=== PATIENT | male | born 1960 | race Caucasian/White ===

== ENCOUNTER 2016-06-21 16:04 | Observation (INO) | payer OTHER ==
[~2016-06-21] VITALS: Ht 172.7 cm; Wt 86.0 kg
[~2016-06-21 16:04] MED LIST: ALPR1 PO; DEPA500T3 PO; INDO50 PO; PERC5TAB12 PO; PROZ20CA11 PO; SERO50TA4 PO; TRAZ100 PO; ZOLP10TA3 PO
[2016-06-21 16:07] VITALS: BP 120/69; PULSE 86; RESP 15; TEMP 97.4; O2SAT 100
[2016-06-21] MEDS ORDERED: SODIUM CHLORIDE 0.9% FLUSH 10 ML FLUSH IVF PRN (16:30)
--- NOTE | 2016-06-21 16:33 | PD ---
HPI Chief Complaint: Syncope/Near-Syncope Time Seen by Provider: 16:33 Travel History International Travel<30 days: No Contact w/Intl Traveler<30days: No Traveled to known affect area: No History of Present Illness HPI 56-year-old male with history of seizure disorder, migraine headaches, CVA, presents to the emergency department for evaluation. Patient states that this morning he began feeling dizzy. He was with a friend. He became lightheaded and passed out. He struck his head on the ground. Patient states following that he has felt not quite himself throughout the day. He states that there were 2 more instance today where he fell again. He states he was aware but had felt like he had lost control of his body. He states that this scared him. He has never had anything like this happen before. He does sometimes fall from time to time but he states never like this. He denies any recent illnesses, fever, or chills. Denies any chest pain or tightness. Denies any episodes of diaphoresis. No nausea or vomiting. He is reporting a headache and back pain now since striking his head on the ground. He reports no acute focal deficit or weakness. He has no other symptoms to report at this time. PFSH Past Medical History Arthritis: Yes Anxiety: Yes Depression: Yes Cerebrovascular Accident: Yes Diabetes: No Musculoskeletal: Yes (DEGENERATIVE DISC DISEASE, BULGING DISC) Integumentary: Yes (PSORIASIS) Immunizations Current: Yes Past Surgical History Abdominal Surgery: Yes (HERNIA REPAIR RIGHT LOWER GROIN) Eye Surgery: Yes (left eyelid) Other Surgery: Yes (SINUS) Social History Alcohol Use: No (3 years ago) Tobacco Use: No Substance Use: No Allergies-Medications (Allergen,Severity, Reaction): Coded Allergies: Lomustine (Verified Allergy, Severe, Rash, 06/21/16) Penicillin (Verified Allergy, Severe, Rash, 06/21/16) Reported Meds & Prescriptions Reported Meds & Active Scripts Active Reported Ammonium Lactate (Lactic Acid) 12 % Cre 1 Applic TOP BID APPLY TO: Clobetasol Topical (Clobetasol Propionate) 0.05% Cream 1 Applic TOPICAL BID Pyridostigmine ER (Pyridostigmine [place]) 180 Mg Tab 60 Mg PO TID Trazodone HCl 100 Mg Tab 200 Mg PO HS Fluoxetine HCl (Fluoxetine HCl (Pmdd)) 20 Mg Tab 60 Mg PO DAILY Quetiapine Fumarate ER (Quetiapine Fumarate) 200 Mg Tab 150 Mg PO HS Hydroxyzine Pamoate 100 Mg Cap 100 Mg PO QID PRN Divalproex ER (Divalproex Sodium) 500 Mg Tab 1,000 Mg PO DAILY Zolpidem (Zolpidem Tartrate) 5 Mg Tab 5 Mg PO HS PRN Review of Systems Except as stated in HPI: all other systems reviewed are Neg Physical Exam Narrative GENERAL: Well-nourished male patient, sitting in bed in no acute distress SKIN: Focused skin assessment warm/dry. HEAD: Normocephalic. EYES: Slightly [place] left pupil. No scleral icterus. No injection or drainage. ENT: No nasal bleeding or discharge. Mucous membranes pink and moist. NECK: Trachea midline. No JVD. No cervical spine tenderness palpation. CARDIOVASCULAR: Regular rate and rhythm. No murmur appreciated. RESPIRATORY: No accessory muscle use. Clear to auscultation. Breath sounds equal bilaterally. GASTROINTESTINAL: Abdomen soft, non-tender, nondistended. Hepatic and splenic margins not palpable. MUSCULOSKELETAL: No obvious deformities. No clubbing. No cyanosis. No edema. NEUROLOGICAL: Awake and alert. No obvious cranial nerve deficits. Motor grossly within normal limits. Normal speech. PSYCHIATRIC: Appropriate mood and affect; insight and judgment normal. Data Data Last Documented VS Vital Signs Date Time Temp Pulse Resp B/P Pulse Ox O2 Delivery O2 Flow Rate FiO2 06/21/16 16:38 16 97 Room Air 06/21/16 16:07 97.4 86 120/69 Orders Electrocardiogram (06/21/16 16:24) Complete Blood Count With Diff (06/21/16 16:24) Comprehensive Metabolic Panel (06/21/16 16:24) B-Type Natriuretic Peptide (06/21/16 16:24) Ckmb (Isoenzyme) Profile (06/21/16 16:24) Troponin I (06/21/16 16:24) Act Partial Throm Time (Ptt) (06/21/16 16:24) Prothrombin Time / Inr (Pt) (06/21/16 16:24) Urinalysis - C+S If Indicated (06/21/16 16:24) Chest, Single Ap (06/21/16 16:24) Ct Brain W/O Iv Contrast(Rout) (4/29/17 16:24) Ct Cerv Spine W/O Contrast (06/21/16 16:24) Ecg Monitoring (06/21/16 16:24) Iv Access Insert/Monitor (06/21/16 16:24) Oximetry (06/21/16 16:24) Sodium Chloride 0.9% Flush (Ns Flush) (06/21/16 16:30) CKMB (06/21/16 16:58) CKMB% (06/21/16 16:58) Sodium Chlor 0.9% 1000 Ml Inj (Ns 1000 M (06/21/16 18:15) Orthostatic Blood Pressure (06/21/16 18:14) Valproic Acid (Depakene) (06/21/16 19:07) Labs Laboratory Tests Test 06/21/16 16:58 White Blood Count 9.6 TH/MM3 Red Blood Count 4.51 MIL/MM3 Hemoglobin 13.4 GM/DL Hematocrit 39.5 % Mean Corpuscular Volume 87.7 FL Mean Corpuscular Hemoglobin 29.7 PG Mean Corpuscular Hemoglobin 33.9 % Concent Red Cell Distribution Width 14.7 % Platelet Count 180 TH/MM3 Mean Platelet Volume 7.1 FL Neutrophils (%) (Auto) 74.3 % Lymphocytes (%) (Auto) 15.5 % Monocytes (%) (Auto) 9.4 % Eosinophils (%) (Auto) 0.4 % Basophils (%) (Auto) 0.4 % Neutrophils # (Auto) 7.1 TH/MM3 Lymphocytes # (Auto) 1.5 TH/MM3 Monocytes # (Auto) 0.9 TH/MM3 Eosinophils # (Auto) 0.0 TH/MM3 Basophils # (Auto) 0.0 TH/MM3 CBC Comment DIFF FINAL Differential Comment Prothrombin Time 10.7 SEC Prothromb Time International 1.0 RATIO Ratio Activated Partial 27.1 SEC Thromboplast Time Sodium Level 141 MEQ/L Potassium Level 3.9 MEQ/L Chloride Level 104 MEQ/L Carbon Dioxide Level 29.4 MEQ/L Anion Gap 8 MEQ/L Blood Urea Nitrogen 22 MG/DL Creatinine 0.92 MG/DL Estimat Glomerular Filtration 85 ML/MIN Rate Random Glucose 90 MG/DL Calcium Level 8.8 MG/DL Total Bilirubin 0.5 MG/DL Aspartate Amino Transf 20 U/L (AST/SGOT) Alanine Aminotransferase 31 U/L (ALT/SGPT) Alkaline Phosphatase 49 U/L Total Creatine Kinase 230 U/L Creatine Kinase MB 2.8 NG/ML Troponin I LESS THAN 0.02 NG/ML B-Type Natriuretic Peptide 63 PG/ML Total Protein 7.2 GM/DL Albumin 3.8 GM/DL MDM Medical Decision Making Medical Screen Exam Complete: Yes Emergency Medical Condition: Yes Medical Record Reviewed: Yes Differential Diagnosis Syncope versus near-syncope versus electrolyte abnormality versus dehydration versus cardiac etiology versus neurologic etiology versus seizure versus Depakote toxicity Narrative Course 56-year-old male presents to emergency department for evaluation following 3 syncopal episodes today. Patient appears without distress. His vital signs are stable. Neuro exam is nonfocal. CBC and CMP are without acute concern. Troponin is less than 0.02. BNP is 63. CT of the cervical spine is a slight neural foramina compromise at the right C3-C4, left C5-C6, left C6-C7, and lateral recess compromise at C6 7. CT imaging of the brain is without acute intracranial normality. Chest x-ray shows slight left lung base atelectasis. I discussed the patient my attending physician Dr. Sevilla who agrees the patient should be admitted observation for syncope workup. This is discussed with the patient. He is in agreement with this clinic care. Diagnosis Primary Impression: Syncope Qualified Code: R55 - Syncope, unspecified syncope type Additional Impression: Mild closed head injury Qualified Code: S09.90XA - Mild closed head injury, initial encounter Admitting Information Admitting Physician Requests: Observation Condition: Stable Christy Pope Jun 21, 2016 16:33
[2016-06-21 16:38] VITALS: RESP 16; O2SAT 97
[2016-06-21] MEDS ORDERED: HYDR100C PO (16:47)
[2016-06-21] MEDS ORDERED: FLUO1TAB17 PO (16:47)
[2016-06-21] MEDS ORDERED: AMMO12CR4 TOP (16:47)
[2016-06-21] MEDS ORDERED: DIVA500T3 PO (16:47)
[2016-06-21] MEDS ORDERED: TRAZ100T5 PO (16:47)
[2016-06-21] MEDS ORDERED: QUET-88 PO (16:47)
[2016-06-21] MEDS ORDERED: CLOB0.055 TOPICAL (16:47)
[2016-06-21] MEDS ORDERED: PYRI1TAB8 PO (16:47)
[2016-06-21] MEDS ORDERED: ZOLP5TAB3 PO (16:47)
[2016-06-21 17:11] LABS: AUTOMATED NEUTROPHIL # 7.1 TH/MM3 (1.8-7.7); BASOPHIL % 0.4 % (0.0-2.0); EOSINOPHIL % 0.4 % (0.0-4.0); HEMATOCRIT 39.5 % (39.0-51.0); HEMO FLAGS DIFF FINAL; LYMPH % 15.5 % (9.0-44.0); LYMPHOCYTE # 1.5 TH/MM3 (1.0-4.8); MEAN CELL VOLUME 87.7 FL (80.0-100.0); MEAN CORPUSCULAR HEMOGLOBIN 29.7 PG (27.0-34.0); MEAN CORPUSCULAR HGB CONC 33.9 % (32.0-36.0); MONO % 9.4 % (0.0-8.0); NEUT % 74.3 % (16.0-70.0); PLATELET COUNT 180 TH/MM3 (150-450); RED BLOOD COUNT 4.51 MIL/MM3 (4.50-5.90); RED CELL DISTRIBUTION WIDTH 14.7 % (11.6-17.2); WHITE BLOOD COUNT 9.6 TH/MM3 (4.0-11.0)
[2016-06-21 17:25] LABS: APTT (PATIENT) 27.1 SEC (24.3-30.1); PROTHROMBIN TIME - PATIENT 10.7 SEC (9.8-11.6)
--- NOTE | 2016-06-21 17:29 | RADRPT ---
EXAM DATE/TIME: 06/21/2016 16:32 [facility] COMPARISON: No previous studies available for comparison. INDICATIONS : Dizzy and lightheaded. MEDICAL HISTORY : None. SURGICAL HISTORY : None. ENCOUNTER: Initial ACUITY: 1 day PAIN SCORE: 0/10 LOCATION: Bilateral chest FINDINGS: The lungs are clear without infiltrate, nodule, or mass except for slight left lung base atelectasis. There is no appreciable pleural effusion for technique. Heart and mediastinum are unremarkable. CONCLUSION: Slight left lung base atelectasis. Madan Dove MD on June 21, 2016 at 17:27 Board Certified Radiologist. This report was verified electronically.
[2016-06-21 17:38] LABS: ANION GAP 8 MEQ/L (5-15); AST (GOT) 20 U/L (15-37); BICARBONATE 29.4 MEQ/L (21.0-32.0); BLOOD UREA NITROGEN 22 MG/DL (7-18); CHLORIDE 104 MEQ/L (98-107); GLOMERULAR FILTRATION RATE 85 ML/MIN (>89); POTASSIUM 3.9 MEQ/L (3.5-5.1); SODIUM (NA) 141 MEQ/L (136-145)
[2016-06-21 17:43] LABS: ALKALINE PHOSPHATASE 49 U/L (45-117); ALT (GPT) 31 U/L (12-78); CREATINE KINASE 230 U/L (39-308); TOTAL BILIRUBIN ADULT 0.5 MG/DL (0.2-1.0)
[2016-06-21 17:55] LABS: CKMB 2.8 NG/ML (0.5-3.6)
--- NOTE | 2016-06-21 18:05 | RADRPT ---
EXAM DATE/TIME: 06/21/2016 17:53 [facility] COMPARISON: No previous studies available for comparison. INDICATIONS : Fall, hit head on concrete. RADIATION DOSE: 41.00 CTDIvol (mGy) MEDICAL HISTORY : Cerebrovascular disease. SURGICAL HISTORY : None. ENCOUNTER: Initial ACUITY: 1 day PAIN SCALE: 0/10 LOCATION: cranial TECHNIQUE: Multiple contiguous axial images were obtained of the head. Using automated exposure control and adj ustment of the mA and/or kV according to patient size, radiation dose was kept as low as reasonably a chievable to obtain optimal diagnostic quality images. FINDINGS: There is no evidence for intracranial hemorrhage, mass effect, mass lesions, edema, or extra-axial fl uid collections. The visualized bony structures appear intact. The ventricles are normal size for t he patient's age. There are no signs of acute infarction for technique. CONCLUSION: Unremarkable study. Madan Dove MD on June 21, 2016 at 18:02 Board Certified Radiologist. This report was verified electronically.
--- NOTE | 2016-06-21 18:13 | RADRPT ---
EXAM DATE/TIME: 06/21/2016 17:53 [facility] COMPARISON: No previous studies available for comparison. INDICATIONS : Fall, hit head on concrete. RADIATION DOSE: 20.54 CTDIvol (mGy) MEDICAL HISTORY : Cerebrovascular disease. SURGICAL HISTORY : None. ENCOUNTER: Initial ACUITY: 1 day PAIN SCALE: 0/10 LOCATION: neck TECHNIQUE: Volumetric scanning of the cervical spine was performed. Multiplanar reconstructions in the sagittal, coronal and oblique axial planes were performed. Using automated exposure control and adjustment o f the mA and/or kV according to patient size, radiation dose was kept as low as reasonably achievable to obtain optimal diagnostic quality images. FINDINGS: No evidence of subluxation. No definite fracture is seen for technique. C2-C3: There is no evidence for any significant compromise to the thecal sac, or the exiting nerve roots. N o appreciable thecal sac stenosis is seen. The neural foramina and lateral recess appear patent bila terally. C3-C4: There is slight neural foramina compromise on the right due to asymmetrical bulging disc and hypertro phic changes. No significant thecal sac stenosis is seen. C4-C5: Slight degenerative changes are seen within the disc space and facets. There is no evidence for any s ignificant compromise to the thecal sac, or the exiting nerve roots. No appreciable thecal sac steno sis is seen. The neural foramina and lateral recess appear patent bilaterally. C5-C6: Moderate degenerative changes are seen within the disc space and facets. There is slight neural hailee jaime compromise on the left due to asymmetrical bulging disc and hypertrophic changes. Slight bulging disc and hypertrophic changes are seen with indentation on the thecal sac and no significant compromi se to the thecal sac . C6-C7: Moderate degenerative changes are seen within the disc space and facets. There is slight neural hailee jaime compromise on the left due to asymmetrical bulging disc and hypertrophic changes. Slight bulging disc and hypertrophic changes are seen with indentation on the thecal sac and no significant compromi se to the thecal sac. Slight lateral recess compromise is seen on the left due to hypertrophic change s and bulging disc. C7-T1: There is no evidence for any significant compromise to the thecal sac, or the exiting nerve roots. N o appreciable thecal sac stenosis is seen. The neural foramina and lateral recess appear patent bila terally. CONCLUSION: Slight neural foramina compromise right C3-C4, left C5-C6, left C6-C7 and lateral recess compromise l eft C6-7. K. Tip Dove MD on June 21, 2016 at 18:07 Board Certified Radiologist. This report was verified electronically.
[2016-06-21] MEDS ORDERED: SODIUM CHLOR 0.9% 1000 ML INJ 1,000 ML IV ONE (18:15)
[2016-06-21 19:12] VITALS: BP 135/78; PULSE 52; RESP 18; O2SAT 98
--- NOTE | 2016-06-21 19:42 | HHI.HP ---
[facility] Admission Diagnosis SYNCOPE Diagnoses: (1) Syncope Diagnosis: Principal (2) Seizure disorder Diagnosis: Principal (3) Dehydration Diagnosis: Principal (4) Migraine Diagnosis: Principal Travel History International Travel<30 Days: No Contact w/Intl Traveler <30 Da: No Traveled to Known Affected Are: No History of Present Illness This is a 56-year-old male with a PMH of Seizure Disorder, Migraine, Anxiety, Depression and Psoriasis who presented to the ER after syncopal event. Per patient he "didn't feel right all-day", was at [employer] with a friend and felt sudden onset of lightheadedness/dizziness and sat down on a bench, then had syncopal event w/ head trauma after striking head on ground. Reports 2 subsequent syncopal events as well. Denies seizure activity. On arrival, BP 120/69, HR 86, O2 sat 100% on RA, Afebrile. CBC unremarkable except for elevated neutrophil count. Chemistry essentially unremarkable GFR 85, previously 1 -09/04 16. Troponin negative. INR 1.0. CT Head unremarkable. CT C-spine slight neural foraminal compromise, no acute findings. CXR with slight left lung base atelectasis. Review of Systems Except as stated in HPI: all other systems reviewed are Neg ROS: 14 point review of systems otherwise negative. Past Family Social History Past Medical History PMH: Seizure Disorder, Migraine, Anxiety, Depression and Psoriasis Past Surgical History PAST SURGICAL HISTORY: Hernia Repair, Left Eyelid Surgery, Sinus Surgery Allergies: Coded Allergies: Lomustine (Verified Allergy, Severe, Rash, 06/21/16) Penicillin (Verified Allergy, Severe, Rash, 06/21/16) Family History PAST FAMILY HISTORY: Reviewed. No h/o DM or CAD Social History PAST SOCIAL HISTORY: Negative for alcohol, tobacco or drugs. Physical Exam Vital Signs Vital Signs Date Time Temp Pulse Resp B/P Pulse Ox O2 Delivery O2 Flow Rate FiO2 06/21/16 19:12 52 18 135/78 98 Room Air 06/21/16 16:38 16 97 Room Air 06/21/16 16:07 97.4 86 15 120/69 100 Physical Exam PE: GENERAL: Middle-aged male in no acute distress. HEENT: PERRLA, EOMI. No scleral icterus or conjunctival pallor. No lid lag or facial droop. CARDIOVASCULAR: Regular rate and rhythm. No obvious murmurs to auscultation. No chest tenderness to palpation. RESPIRATORY: No obvious rhonchi or wheezing. Clear to auscultation. Breath sounds equal bilaterally. GASTROINTESTINAL: Abdomen soft, non-tender, nondistended. BS normal. MUSCULOSKELETAL: Extremities without clubbing, cyanosis, or edema. No obvious deformities. NEUROLOGICAL: Awake, alert and oriented x4. No focal neurologic deficits. Moving both upper and lower extremities spontaneously. Laboratory Laboratory Tests Test 06/21/16 16:58 White Blood Count 9.6 Red Blood Count 4.51 Hemoglobin 13.4 Hematocrit 39.5 Mean Corpuscular Volume 87.7 Mean Corpuscular Hemoglobin 29.7 Mean Corpuscular Hemoglobin 33.9 Concent Red Cell Distribution Width 14.7 Platelet Count 180 Mean Platelet Volume 7.1 Neutrophils (%) (Auto) 74.3 Lymphocytes (%) (Auto) 15.5 Monocytes (%) (Auto) 9.4 Eosinophils (%) (Auto) 0.4 Basophils (%) (Auto) 0.4 Neutrophils # (Auto) 7.1 Lymphocytes # (Auto) 1.5 Monocytes # (Auto) 0.9 Eosinophils # (Auto) 0.0 Basophils # (Auto) 0.0 CBC Comment DIFF FINAL Differential Comment Prothrombin Time 10.7 Prothromb Time International 1.0 Ratio Activated Partial 27.1 Thromboplast Time Sodium Level 141 Potassium Level 3.9 Chloride Level 104 Carbon Dioxide Level 29.4 Anion Gap 8 Blood Urea Nitrogen 22 Creatinine 0.92 Estimat Glomerular Filtration 85 Rate Random Glucose 90 Calcium Level 8.8 Total Bilirubin 0.5 Aspartate Amino Transf 20 (AST/SGOT) Alanine Aminotransferase 31 (ALT/SGPT) Alkaline Phosphatase 49 Total Creatine Kinase 230 Creatine Kinase MB 2.8 Troponin I LESS THAN 0.02 B-Type Natriuretic Peptide 63 Total Protein 7.2 Albumin 3.8 Result Diagram: 06/21/16 1658 06/21/16 9838 Assessment and Plan Problem List: (1) Syncope ICD Code: R55 Status: Acute (2) Dehydration ICD Code: E86.0 Status: Acute (3) Seizure disorder ICD Code: G40.909 Status: Acute (4) Migraine ICD Code: G43.909 Status: Acute Assessment and Plan A/P: 1. Syncope: s/p syncopal event x3 earlier today w/ +head trauma. CT Head/C- Spine w/ no acute findings, images reviewed by me. Dizziness/lightheadedness prior to event. Admit for Observation, telemetry, IVF for hydration. Initial trop negative, check serial cardiac enzymes. Check Echo. 2. Dehydration: GFR 85, previously 121 on 09/05/15. Check U/a, IVF for hydration, repeat labs in am. 3. Seizure Disorder: Controlled. No reported seizure activity. Resume home medications. Valproic Acid level pending. 4. Migraine: Takes Tylenol at home, analgesics as needed. 5. DVT Prophylaxis: SCD/Teds. 6. Social work for d/c planning as needed. 7. Case discussed w/ ER physician at length. Problem Qualifiers (1) Syncope: Qualified Code: R55 - Syncope, unspecified syncope type Breana Sanders MD Jun 21, 2016 19:42
[2016-06-21] MEDS ORDERED: BISACODYL 10 MG SUPP RECTAL PRN (19:45)
[2016-06-21] MEDS ORDERED: ACETAMINOPHEN 325 MG TAB PO PRN (19:45)
[2016-06-21] MEDS ORDERED: SODIUM CHLORIDE 0.9% FLUSH 10 ML FLUSH IV FLUSH PRN (19:45)
[2016-06-21] MEDS ORDERED: ZOLPIDEM TARTRATE 5 MG TAB PO PRN (19:45)
[2016-06-21] MEDS ORDERED: ONDANSETRON HCL 4 MG/2 ML VIAL IVP PRN (19:45)
[2016-06-21] MEDS: MORPHINE SULFATE 4 MG/ML INJ IV PRN (20:23)
[2016-06-21] MEDS: SODIUM CHLOR 0.9% 1000 ML INJ 1,000 ML IV SCH (20:23)
[2016-06-21 20:24] VITALS: BP 145/77; PULSE 61; RESP 18; O2SAT 97
[2016-06-21 23:00] VITALS: BP_SYST 125; BP_SYST 128; BP_SYST 136; BP_DIAS 72; BP_DIAS 75; BP_DIAS 77
[2016-06-21] MEDS: SODIUM CHLORIDE 0.9% FLUSH 10 ML FLUSH IV FLUSH SCH (23:00)
[2016-06-21] MEDS: traZODone HCL 100 MG TAB PO SCH (23:00)
[2016-06-21] MEDS: QUEtiapine FUMARATE 150 MG EXTENDED RELEASE TABLET PO SCH (23:01)
[2016-06-21] MEDS: BETAMETHASONE DIPROPIONATE 0.05% CREAM 15 GM TOPICAL SCH (23:02)
[2016-06-21 23:19] VITALS: PULSE 57
[2016-06-22 04:00] VITALS: BP 129/74; PULSE 49; RESP 20; TEMP 97.5; O2SAT 96
[2016-06-22] MEDS: SODIUM CHLOR 0.9% 1000 ML INJ 1,000 ML IV SCH ×2 (06:04→15:36)
[2016-06-22] MEDS: MORPHINE SULFATE 4 MG/ML INJ IV PRN ×3 (06:40→20:50)
[2016-06-22 07:12] LABS: AUTOMATED NEUTROPHIL # 3.9 TH/MM3 (1.8-7.7); BASOPHIL % 0.4 % (0.0-2.0); EOSINOPHIL # 0.1 TH/MM3 (0-0.4); EOSINOPHIL % 2.2 % (0.0-4.0); HEMATOCRIT 37.5 % (39.0-51.0); HEMO FLAGS DIFF FINAL; LYMPH % 30.5 % (9.0-44.0); MEAN CORPUSCULAR HEMOGLOBIN 30.5 PG (27.0-34.0); MEAN CORPUSCULAR HGB CONC 35.1 % (32.0-36.0); MONO % 8.3 % (0.0-8.0); NEUT % 58.6 % (16.0-70.0); PLATELET COUNT 168 TH/MM3 (150-450); RED BLOOD COUNT 4.31 MIL/MM3 (4.50-5.90); WHITE BLOOD COUNT 6.6 TH/MM3 (4.0-11.0)
[2016-06-22 07:46] LABS: ALKALINE PHOSPHATASE 48 U/L (45-117); ALT (GPT) 26 U/L (12-78); ANION GAP 4 MEQ/L (5-15); AST (GOT) 19 U/L (15-37); BICARBONATE 29.6 MEQ/L (21.0-32.0); BLOOD UREA NITROGEN 16 MG/DL (7-18); CHLORIDE 111 MEQ/L (98-107); GLOMERULAR FILTRATION RATE 109 ML/MIN (>89); POTASSIUM 3.7 MEQ/L (3.5-5.1); SODIUM (NA) 145 MEQ/L (136-145); TOTAL BILIRUBIN ADULT 0.4 MG/DL (0.2-1.0)
[2016-06-22 07:52] VITALS: BP 126/75; PULSE 50; RESP 18; TEMP 97.9; O2SAT 96
[2016-06-22] MEDS: PYRIDOSTIGMINE BROMIDE 60 MG TAB PO SCH ×4 (09:00→17:43)
[2016-06-22] MEDS: FLUoxetine HCL 20 MG CAP PO SCH (09:49)
[2016-06-22] MEDS: DIVALPROEX SODIUM E.R. 500 MG TAB PO SCH (09:50)
[2016-06-22] MEDS: SODIUM CHLORIDE 0.9% FLUSH 10 ML FLUSH IV FLUSH SCH ×2 (09:50→20:47)
[2016-06-22] MEDS: BETAMETHASONE DIPROPIONATE 0.05% CREAM 15 GM TOPICAL SCH ×2 (09:50→20:48)
[2016-06-22] MEDS ORDERED: PILL SPLITTER OTHER PRN (10:45)
[2016-06-22] MEDS ORDERED: CYCLOBENZAPRINE HCL 10 MG TAB PO ONE (10:45)
--- NOTE | 2016-06-22 10:54 | HHI.PR ---
Subjective Remarks Follow up for syncope. 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 He states he felt fine throughout the day, drank plenty of water, felt cool and the shade, when he all of a sudden felt very lightheaded, tried to walk forward , but then felt himself falling backwards, and fell backwards over a bench striking the back of his head on the concrete. He was able to get up with assistance, went inside [facility] and sat down on a bench when he felt lightheaded and passed out again. He started feeling better and therefore his fiance took him home. At home his blood pressure was in the 70s/50s therefore his fiance urged him to come to the emergency room. He is not on blood pressure medications. The patient states today he feels slightly better, no lightheadedness/dizziness, but does feel sore "all over" mostly in his back from falling over the bench. The patient states he does have a history of getting lightheaded mostly upon standing, then will take a few seconds to go away. He has never passed out like this before. He denies any recent vomiting or diarrhea. He states he stays well hydrated and drinks water regularly. Denies any recent chest pains or shortness of breath. Denies any other medical complaints at this time. Objective Vitals Vital Signs Date Time Temp Pulse Resp B/P Pulse Ox O2 Delivery O2 Flow Rate FiO2 06/22/16 07:52 97.9 50 18 126/75 96 06/22/16 06:50 20 06/22/16 04:00 97.5 49 20 129/74 96 06/21/16 23:19 57 06/21/16 23:00 125/77 136/75 128/72 06/21/16 20:24 61 18 145/77 97 Room Air 06/21/16 19:12 52 18 135/78 98 Room Air 06/21/16 16:38 16 97 Room Air 06/21/16 16:07 97.4 86 15 120/69 100 I/O 06/21/16 06/21/16 06/21/16 06/22/16 06/22/16 06/22/16 07:00 15:00 23:00 07:00 15:00 23:00 Intake Total 1125 ml 680 ml Output Total 500 ml 460 ml Balance 625 ml 220 ml Intake Oral 200 ml 360 ml IV Total 925 ml 320 ml Output Urine Total 500 ml 460 ml # Bowel Movements 0 Result Diagram: 06/22/16 0630 06/22/16 0630 Imaging Last Impressions Head CT 06/21/161623 Signed Impressions: Service Date/Time: Tuesday, June 21, 2016 17:53 - CONCLUSION: Unremarkable study. Madan Dove MD Chest X-Ray 06/21/161623 Signed Impressions: Service Date/Time: Tuesday, June 21, 2016 16:32 - CONCLUSION: Slight left lung base atelectasis. Madan Dove MD Cervical Spine CT 06/21/161623 Signed Impressions: Service Date/Time: Tuesday, June 21, 2016 17:53 - CONCLUSION: Slight neural foramina compromise right C3-C4, left C5-C6, left C6-C7 and lateral recess compromise left C6-7. Madan Dove MD Objective Remarks GENERAL: Well-nourished, well-developed middle aged male patient in [facility]. SKIN: Warm and dry. No rash. HEENT: Normocephalic. Atraumatic. Pupils equal and round. Mucous membranes pink and moist. NECK: Supple. Trachea midline. CARDIOVASCULAR: Regular rate and rhythm. S1, S2 noted. No murmur appreciated. RESPIRATORY: No accessory muscle use. Clear to auscultation. Breath sounds equal bilaterally. GASTROINTESTINAL: Abdomen soft, non-tender, nondistended. Normoactive bowel sounds x4. MUSCULOSKELETAL: No obvious deformities. Extremities without clubbing, cyanosis , or edema. NEUROLOGICAL: Awake and alert. No obvious cranial nerve deficits. Motor grossly within normal limits. 5/5 muscle strength in bilateral upper and lower extremities. Normal speech. PSYCHIATRIC: Appropriate mood and affect; insight and judgment normal. Medications and IVs Current Medications Medications (Trade) Dose Ordered Sig/Nader Route Start Time Stop Time Status Last Admin Sodium Chloride 2 ml 2 ml UNSCH PRN IVF 06/21/16 16:30 (NS 1000 ml Inj) 1,000 ml @ 100 mls/hr Q10H IV 06/21/16 19:36 06/22/16 06:04 (NS Flush) 2 ml UNSCH PRN IV FLUSH 06/21/16 19:45 (NS Flush) 2 ml BID IV FLUSH 06/21/16 21:00 06/22/16 09:50 (Zofran Inj) 4 mg Q6H PRN IVP 06/21/16 19:45 (Dulcolax Supp) 10 mg DAILY PRN RECTAL 06/21/16 19:45 (Tylenol) 650 mg Q6H PRN PO 06/21/16 19:45 ([place] 5-325 Mg) 1 tab Q4H PRN PO 06/21/16 19:45 (Morphine Inj) 2 mg Q3H PRN IV 06/21/16 19:45 06/22/16 06:40 (Depakote Er) 1,000 mg DAILY PO 06/22/16 09:00 06/22/16 09:50 (Ambien) 5 mg HS PRN PO 06/21/16 19:45 (Diprosone 0.05% Cream) 1 applic BID TOPICAL 06/21/16 21:00 06/22/16 09:50 (PROzac) 60 mg DAILY PO 06/22/16 09:00 06/22/16 09:49 (Mestinon) 60 mg TID PO 06/22/16 09:00 06/22/16 09:58 (SEROquel XR) 150 mg HS PO 06/21/16 21:00 06/21/16 23:01 (Desyrel) 200 mg HS PO 06/21/16 21:00 06/21/16 23:00 (Pneumovax-23 Inj) 25 mcg ONCE ONCE IM 06/23/16 10:00 06/23/16 10:01 A/P Problem List: (1) Syncope ICD Code: R55 Status: Acute (2) Dehydration ICD Code: E86.0 Status: Acute (3) Seizure disorder ICD Code: G40.909 Status: Acute (4) Migraine ICD Code: G43.909 Status: Acute Assessment and Plan 56-year-old male with a PMH of Seizure Disorder, Migraine, Anxiety, Depression and Psoriasis who presented to the ER after syncopal event. Syncope: s/p syncopal event x2 w/ +head trauma. CT Head/C-Spine w/ no acute findings, images reviewed by me. Lightheadedness prior to event. Monitor on telemetry. Give IVF for hydration. ACS ruled out with negative serial cardiac enzymes x3 and EKG without acute ischemic changes. Orthostatics negative. Check Echo. Check carotid U/S. With hx of seizures, check EEG. Dehydration: GFR 85, previously 121 on 09/05/15. Check U/a. Give IVF for hydration, repeat labs show improvement, GFR 109. Acute Back Pain: secondary to fall over bench after syncope. Continue [place] prn. Added flexeril prn spasms. Heating pad. PT consult in am. Seizure Disorder: Controlled. No reported seizure activity. Resume home medications. Valproic Acid level 49. Migraine: Takes Tylenol at home, analgesics as needed. DVT Prophylaxis: SCD/Teds. Discussed with Dr. Rivero. Problem Qualifiers (1) Syncope: Qualified Code: R55 - Syncope, unspecified syncope type Geneva Ha PA-C Jun 22, 2016 10:54 am
[2016-06-22 12:04] VITALS: BP 111/67; PULSE 56; RESP 18; TEMP 98.6; O2SAT 95
[2016-06-22 12:25] LABS: BACTERIA, URINE OCC /hpf; BLOOD, URINE NEG (NEG); COMMENT (UR) CULT NOT INDICATED; CULTURE IF INDICATED CULT NOT INDICATED; GLUCOSE,URINE NEG (NEG); KETONE, URINE NEG (NEG); MUCUS URINE FEW /lpf (OCC); NITRITE,URINE NEG (NEG); PH, URINE 6.5 (5.0-8.5); URINE COLOR YELLOW (YELLW/STRAW)
--- NOTE | 2016-06-22 12:30 | RADRPT ---
EXAM DATE/TIME: 06/22/2016 10:25 [place] COMPARISON: No previous studies available for comparison. INDICATIONS : Syncope. MEDICAL HISTORY : Arthritis. CVA. Degenerative disc disease. Bulging disc. Psoriasis. Depression. Anxiety. Previous suicide attempt. SURGICAL HISTORY : Inguinal hernia repair. Left eyelid. Sinus. ENCOUNTER: Initial ACUITY: 1 day PAIN SCORE: 1/10 LOCATION: Bilateral neck PEAK SYSTOLIC VELOCITIES (cm/sec): ICA/CCA RATIO: Right: 1.0 Left: 1.0 ICA: Right: 69 Left: 75 CCA: Right: 66 Left: 74 ECA: Right: 53 Left: 58 VERTEBRAL: Right: 37 antegrade Left: 48 antegrade Elevated flow velocities and ICA/CCA ratios have been found to correlate with increased degrees of vessel stenosis, calculated as percentage of diameter relative to a normal segment of distal ICA/CCA FINDINGS: RIGHT CAROTID: No significant stenosis is visualized. The waveforms are within normal limits. LEFT CAROTID: No significant stenosis is visualized. The waveforms are within normal limits. VERTEBRAL ARTERIES: Antegrade flow is seen in both vertebral arteries. MISCELLANEOUS: None. CONCLUSION: Carotid ultrasound within normal limits. Tristan Langford MD on June 22, 2016 at 12:28 Board Certified Radiologist. This report was verified electronically.
--- NOTE | 2016-06-22 15:55 | MG ---
cc: DAVID PORTER M.D. Lab No: Date: 06/22/2016 Age: Sex: M Race: Cc TEST NUMBER [id number] TECHNIQUE 17 channel EEG. DESCRIPTION The background rhythm is a symmetrical alpha rhythm, frequency 8 Hz. Amplitude 20-30 microvolts. During drowsiness there is mild slowing in the theta range at roughly 6 Hz. There are no lateralizing features. There are no epileptiform discharges. Hyperventilation was not done. Photic stimulation results in a normal driving response. INTERPRETATION Normal EEG. MD MYRNA Dey/MINNIE /3:48 PM /3:53 PM
[2016-06-22 16:02] VITALS: BP 116/55; PULSE 56; RESP 18; TEMP 97.9; O2SAT 96
[2016-06-22 19:28] VITALS: BP 115/64; PULSE 60; RESP 21; TEMP 97.6; O2SAT 95
[2016-06-22 20:05] VITALS: PULSE 56
[2016-06-22] MEDS: traZODone HCL 100 MG TAB PO SCH (20:47)
[2016-06-22] MEDS: QUEtiapine FUMARATE 150 MG EXTENDED RELEASE TABLET PO SCH ×2 (20:48→20:54)
--- NOTE | 2016-06-22 22:45 | EKG ---
Date Performed: 06/21/2016 Time Performed: 16:30:28 PTAGE: 56 years EKG: Sinus rhythm NONSPECIFIC T-WAVE ABNORMALITY BORDERLINE ECG NO PREVIOUS TRACING DOCTOR: Jenae Magdaleno Interpretating Date/Time 06/22/2016 22:43:17
[2016-06-23] VITALS (7 sets, daily range): BP systolic 93–146; BP diastolic 58–89; PULSE 51–61; RESP 16–21; TEMP 96.7–98.6; O2SAT 95–97
[2016-06-23] MEDS: SODIUM CHLOR 0.9% 1000 ML INJ 1,000 ML IV SCH ×2 (01:58→11:36)
[2016-06-23] MEDS: ACETAMINOPHEN/HYDROcodone 325 MG/5 MG TAB PO PRN ×2 (06:33→20:32)
[2016-06-23] MEDS: PYRIDOSTIGMINE BROMIDE 60 MG TAB PO SCH ×3 (08:30→17:11)
[2016-06-23] MEDS: FLUoxetine HCL 20 MG CAP PO SCH (08:30)
[2016-06-23] MEDS: DIVALPROEX SODIUM E.R. 500 MG TAB PO SCH (08:30)
[2016-06-23] MEDS: BETAMETHASONE DIPROPIONATE 0.05% CREAM 15 GM TOPICAL SCH ×2 (08:32→20:34)
[2016-06-23] MEDS: SODIUM CHLORIDE 0.9% FLUSH 10 ML FLUSH IV FLUSH SCH ×2 (08:33→20:34)
--- NOTE | 2016-06-23 09:35 | HHI.PR ---
Subjective Remarks Follow up for syncope. The patient reports feeling better today, just "sore" all over from his fall. He states the [place] and Flexeril does help. He denies any lightheadedness or dizziness. He was able to ambulate with physical therapy today, recommends wheel[facility] The patient has no other medical complaints to report at this time. Awaiting echocardiogram. Objective Vitals Vital Signs Date Time Temp Pulse Resp B/P Pulse Ox O2 Delivery O2 Flow Rate FiO2 06/23/16 07:53 98.2 51 18 146/89 97 06/23/16 07:33 18 06/23/16 04:53 98.6 54 21 93/58 95 06/23/16 00:48 97.6 59 20 119/65 95 06/22/16 20:55 20 06/22/16 20:05 56 06/22/16 19:28 97.6 60 21 115/64 95 06/22/16 16:02 97.9 56 18 116/55 96 06/22/16 12:04 98.6 56 18 111/67 95 I/O 06/22/16 06/22/16 06/22/16 06/23/16 06/23/16 06/23/16 07:00 15:00 23:00 07:00 15:00 23:00 Intake Total 1125 ml 680 ml 1108 ml Output Total 500 ml 460 ml 800 ml Balance 625 ml 220 ml 308 ml Intake Oral 200 ml 360 ml 400 ml IV Total 925 ml 320 ml 708 ml Output Urine Total 500 ml 460 ml 800 ml # Bowel Movements 0 Result Diagram: 06/22/16 0630 06/22/16 0630 Imaging Last Impressions Carotid Artery Ultrasound 06/22/16 0000 Signed Impressions: Service Date/Time: Wednesday, June 22, 2016 10:25 - CONCLUSION: Carotid ultrasound within normal limits. Tristan Langford MD Head CT 06/21/161623 Signed Impressions: Service Date/Time: Tuesday, June 21, 2016 17:53 - CONCLUSION: Unremarkable study. Madan Dove MD Chest X-Ray 06/21/161623 Signed Impressions: Service Date/Time: Tuesday, June 21, 2016 16:32 - CONCLUSION: Slight left lung base atelectasis. Madan Dove MD Cervical Spine CT 06/21/16 1624 Signed Impressions: Service Date/Time: Tuesday, June 21, 2016 17:53 - CONCLUSION: Slight neural foramina compromise right C3-C4, left C5-C6, left C6-C7 and lateral recess compromise left C6-7. Madan Dove MD Objective Remarks GENERAL: Well-nourished, well-developed middle aged male patient in [facility]. SKIN: Warm and dry. No rash. HEENT: Normocephalic. Atraumatic. Pupils equal and round. Mucous membranes pink and moist. NECK: Supple. Trachea midline. CARDIOVASCULAR: Regular rate and rhythm. S1, S2 noted. No murmur appreciated. RESPIRATORY: No accessory muscle use. Clear to auscultation. Breath sounds equal bilaterally. GASTROINTESTINAL: Abdomen soft, non-tender, nondistended. Normoactive bowel sounds x4. MUSCULOSKELETAL: No obvious deformities. Extremities without clubbing, cyanosis , or edema. Multiple areas of ecchymosis throughout mid-lower back, no bony point tenderness to palpation. NEUROLOGICAL: Awake and alert. No obvious cranial nerve deficits. Motor grossly within normal limits. 5/5 muscle strength in bilateral upper and lower extremities. Normal speech. PSYCHIATRIC: Appropriate mood and affect; insight and judgment normal. Medications and IVs Current Medications Medications (Trade) Dose Ordered Sig/Nader Route Start Time Stop Time Status Last Admin Sodium Chloride 2 ml 2 ml UNSCH PRN IVF 06/21/16 16:30 (NS 1000 ml Inj) 1,000 ml @ 100 mls/hr Q10H IV 06/21/16 19:36 06/23/16 01:58 (NS Flush) 2 ml UNSCH PRN IV FLUSH 06/21/16 19:45 (NS Flush) 2 ml BID IV FLUSH 06/21/16 21:00 06/23/16 08:33 (Zofran Inj) 4 mg Q6H PRN IVP 06/21/16 19:45 (Dulcolax Supp) 10 mg DAILY PRN RECTAL 06/21/16 19:45 (Tylenol) 650 mg Q6H PRN PO 06/21/16 19:45 ([place] 5-325 Mg) 1 tab Q4H PRN PO 06/21/16 19:45 06/23/16 06:33 (Morphine Inj) 2 mg Q3H PRN IV 06/21/16 19:45 06/22/16 20:50 (Depakote Er) 1,000 mg DAILY PO 06/22/16 09:00 06/23/16 08:30 (Ambien) 5 mg HS PRN PO 06/21/16 19:45 (Diprosone 0.05% Cream) 1 applic BID TOPICAL 06/21/16 21:00 06/23/16 08:32 (PROzac) 60 mg DAILY PO 06/22/16 09:00 06/23/16 08:30 (Mestinon) 60 mg TID PO 06/22/16 09:00 06/23/16 08:30 (SEROquel XR) 150 mg HS PO 06/21/16 21:00 06/22/16 20:54 (Desyrel) 200 mg HS PO 06/21/16 21:00 06/22/16 20:47 (Pneumovax-23 Inj) 25 mcg ONCE ONCE IM 06/23/16 10:00 06/23/16 10:01 (Flexeril) 5 mg Q8H PRN PO 06/22/16 19:00 (Pill Splitter) 1 ea UNSCH PRN OTHER 06/22/16 10:45 A/P Problem List: (1) Syncope ICD Code: R55 Status: Acute (2) Dehydration ICD Code: E86.0 Status: Acute (3) Seizure disorder ICD Code: G40.909 Status: Acute (4) Migraine ICD Code: G43.909 Status: Acute Assessment and Plan 56-year-old male with a PMH of Seizure Disorder, Migraine, Anxiety, Depression and Psoriasis who presented to the ER after syncopal event. Syncope: s/p syncopal event x2 w/ +head trauma. CT Head/C-Spine w/ no acute findings, images reviewed by me. Lightheadedness prior to event. Monitor on telemetry. Give IVF for hydration. ACS ruled out with negative serial cardiac enzymes x3 and EKG without acute ischemic changes. Orthostatics negative. Carotid U/S unremarkable. With hx of seizures, checked EEG which was normal. Monitor on telemetry, no acute findings. Awaiting Echo. Dehydration: GFR 85, previously 121 on 09/05/15. Check U/a. Give IVF for hydration, repeat labs show improvement, GFR 109. Acute Back Pain: secondary to fall over bench after syncope. Continue [place] prn. Added flexeril prn spasms. Heating pad. PT consulted, recommends walker and outpatient PT at the [place]. Seizure Disorder: Controlled. No reported seizure activity. Resume home medications. Valproic Acid level 49. EEG negative. Migraine: Takes Tylenol at home, analgesics as needed. DVT Prophylaxis: SCD/Teds. Discussed with Dr. Rivero and physical therapy. Problem Qualifiers (1) Syncope: Qualified Code: R55 - Syncope, unspecified syncope type Geneva Ha PA-C June 23, 2016 9:35 am
[2016-06-23] MEDS ORDERED: PNEUMOCOCCAL POLYVALENT INJ 25 MCG/0.5 ML SYR IM ONE (10:00)
[2016-06-23] MEDS: CYCLOBENZAPRINE HCL 10 MG TAB PO PRN ×2 (10:28→20:33)
[2016-06-23] MEDS: MORPHINE SULFATE 4 MG/ML INJ IV PRN (12:52)
[2016-06-23] MEDS ORDERED: HYDR-3516 PO (16:14)
--- NOTE | 2016-06-23 20:03 | EC ---
Study Study Date:06/23/2016 STUDY CONCLUSIONS SUMMARY - Left ventricle: The cavity size was normal. Wall thickness was normal. Systolic function was normal. The estimated ejection fraction was 60%. Wall motion was normal; there were no regional wall motion abnormalities. - Mitral valve: Mild regurgitation. - Right ventricle: The cavity size was mildly dilated. Wall thickness was normal. - Tricuspid valve: Mild regurgitation. If LV function is below 40, please consider prescribing an ACEI or ARB or document rationale for non-use. PROCEDURE DATA STUDY STATUS: Elective. Procedure: Transthoracic echocardiography. Image quality was good. Scanning was performed from the parasternal, apical, and subcostal acoustic windows. Study completion: The patient tolerated the procedure well. Transthoracic echocardiography. M-mode, complete 2D, complete spectral Doppler, and color Doppler. Patient status: Inpatient. CARDIAC ANATOMY LEFT VENTRICLE: The cavity size was normal. Wall thickness was normal. Systolic function was normal. The estimated ejection fraction was 60%. Wall motion was normal; there were no regional wall motion abnormalities. AORTIC VALVE: Trileaflet; mildly thickened leaflets. Doppler: Transvalvular velocity was within the normal range. There was no stenosis. No regurgitation. AORTA: Aortic root: The aortic root was normal in size. MITRAL VALVE: Structurally normal valve. Doppler: Transvalvular velocity was within the normal range. There was no evidence for stenosis. Mild regurgitation. LEFT ATRIUM: The atrium was normal in size. RIGHT VENTRICLE: The cavity size was mildly dilated. Wall thickness was normal. PULMONIC VALVE: Doppler: Transvalvular velocity was within the normal range. There was no evidence for stenosis. No regurgitation. TRICUSPID VALVE: Structurally normal valve. Doppler: Transvalvular velocity was within the normal range. Mild regurgitation. PULMONARY ARTERY: The main pulmonary artery was normal-sized. Systolic pressure was within the normal range. RIGHT ATRIUM: The atrium was normal in size. PERICARDIUM: There was no pericardial effusion. SYSTEMIC VEINS: Inferior vena cava: The vessel was normal in size. BASIC MEASUREMENTS ADULT Normal Left ventricle LV internal dimension, ED, chordal level, *39.4 mm 43-52 PLAX LV internal dimension, ES, chordal level, 27.3 mm 23-38 PLAX Fractional shortening, chordal level, PLAX 31 % >29 LV posterior wall thickness, ED 13 mm IVS/LVPW ratio, ED 0.89 <1.3 Ventricular septum Septal thickness, ED 11.6 mm Aortic valve Leaflet separation 18 mm 15-26 Right ventricle RV internal dimension, ED, PLAX 31.7 mm 19-38 BASIC MEASUREMENTS ADULT Normal Aortic valve Leaflet separation 18 mm 15-26 Aorta Root diameter, ED 37 mm 20-37 Left atrium Anterior-posterior dimension, ES 35 mm 19-40 LA/aortic root ratio 0.95 DOPPLER MEASUREMENTS ADULT Normal Main pulmonary artery Pressure, S 30 mm Hg =30 Tricuspid valve Regurgitant peak velocity 226 cm/s Peak RV-RA gradient, S 20 mm Hg Systemic veins Estimated CVP 10 mm Hg Right ventricle RV pressure, S *30 mm Hg <30 LEGEND: Mean values are shown as u=mean value. Asterisk (*) casper values outside specified normal range. Prepared and signed by Jenae Magdaleno [id number]
[2016-06-23] MEDS: traZODone HCL 100 MG TAB PO SCH (20:32)
[2016-06-23] MEDS: QUEtiapine FUMARATE 150 MG EXTENDED RELEASE TABLET PO SCH (20:32)
[2016-06-24] VITALS: BP 130/75; PULSE 50; RESP 15; TEMP 96.5; O2SAT 96
[2016-06-24 04:00] VITALS: BP 115/69; PULSE 50; RESP 16; TEMP 96.9; O2SAT 95
[2016-06-24] MEDS: FLUoxetine HCL 20 MG CAP PO SCH (07:36)
[2016-06-24] MEDS: SODIUM CHLORIDE 0.9% FLUSH 10 ML FLUSH IV FLUSH SCH (07:37)
[2016-06-24] MEDS: PYRIDOSTIGMINE BROMIDE 60 MG TAB PO SCH (07:37)
[2016-06-24] MEDS: DIVALPROEX SODIUM E.R. 500 MG TAB PO SCH (07:37)
[2016-06-24] MEDS: SODIUM CHLOR 0.9% 1000 ML INJ 1,000 ML IV SCH (07:38)
[2016-06-24] MEDS: BETAMETHASONE DIPROPIONATE 0.05% CREAM 15 GM TOPICAL SCH (07:39)
[2016-06-24] MEDS: MORPHINE SULFATE 4 MG/ML INJ IV PRN (07:43)
[2016-06-24] MEDS: CYCLOBENZAPRINE HCL 10 MG TAB PO PRN (07:43)
[2016-06-24 07:55] VITALS: PULSE 47
[2016-06-24 08:17] VITALS: BP_SYST 107; BP_SYST 122; BP_SYST 126; BP_DIAS 73; BP_DIAS 78; BP_DIAS 81; PULSE 50; RESP 17; TEMP 98; O2SAT 95
--- NOTE | 2016-06-24 08:40 | HHI.PR ---
Subjective Remarks Follow-up for syncope. The patient still feels a little sore all over from his fall. He states he had some mild lightheadedness with checking orthostatic blood pressures today, states she's had some sensation of lightheadedness with position changes in the past. However he ambulated with PT yesterday with no difficulties or symptoms. At this time he denies any chest pain or shortness of breath. His heart rate is noted to be approximately 40 bpm while awake at the time of evaluation. He states that he said the sensation of palpitations in the past, but none recently. He states that he was sitting at the time of his syncopal episode. Objective Vitals Vital Signs Date Time Temp Pulse Resp B/P Pulse Ox O2 Delivery O2 Flow Rate FiO2 06/24/16 08:17 98.0 50 17 126/78 95 122/81 107/73 06/24/16 07:55 47 06/24/16 04:00 96.9 50 16 115/69 95 06/24/16 00:52 20 06/24/16 00:00 96.5 50 15 130/75 96 06/23/16 22:45 60 06/23/16 20:00 96.7 59 16 116/70 95 06/23/16 15:44 97.6 56 18 134/79 96 06/23/16 12:57 16 06/23/16 12:00 97.8 61 18 126/76 95 I/O 06/23/16 06/23/16 06/23/16 06/24/16 06/24/16 06/24/16 07:00 15:00 23:00 07:00 15:00 23:00 Intake Total 1108 ml 420 ml Output Total 800 ml 320 ml Balance 308 ml 100 ml Intake Oral 400 ml 420 ml IV Total 708 ml Output Urine Total 800 ml 320 ml Result Diagram: 06/22/16 0630 06/22/16 0630 Imaging Last Impressions Carotid Artery Ultrasound 06/22/16 0000 Signed Impressions: Service Date/Time: Wednesday, June 22, 2016 10:25 - CONCLUSION: Carotid ultrasound within normal limits. Tristan Langford MD Head CT 06/21/16 1624 Signed Impressions: Service Date/Time: Tuesday, June 21, 2016 17:53 - CONCLUSION: Unremarkable study. Madan Dove MD Chest X-Ray 06/21/161623 Signed Impressions: Service Date/Time: Tuesday, June 21, 2016 16:32 - CONCLUSION: Slight left lung base atelectasis. Madan Dove MD Cervical Spine CT 06/21/161623 Signed Impressions: Service Date/Time: Tuesday, June 21, 2016 17:53 - CONCLUSION: Slight neural foramina compromise right C3-C4, left C5-C6, left C6-C7 and lateral recess compromise left C6-7. Madan Dove MD Objective Remarks GENERAL: Well-developed well-nourished. In no acute distress. SKIN: Warm and dry. No lesions noted. HEENT: Normocephalic. Pupils equal and round. Mucous membranes pink and moist. CARDIOVASCULAR: Bradycardic rate and rhythm. No murmur appreciated. RESPIRATORY: No accessory muscle use. Clear to auscultation. Breath sounds equal bilaterally. GASTROINTESTINAL: Abdomen soft, non-tender, nondistended. Bowel sounds x4. MUSCULOSKELETAL: No obvious deformities. No clubbing or cyanosis. No edema. NEUROLOGICAL: Awake and alert. No focal neurological deficits. Moves upper and lower extremities spontaneously. Normal speech. PSYCHIATRIC: Appropriate mood and affect; insight and judgment normal. A/P Problem List: (1) Syncope ICD Code: R55 Status: Acute (2) Dehydration ICD Code: E86.0 Status: Resolved (3) Seizure disorder ICD Code: G40.909 Status: Chronic (4) Migraine ICD Code: G43.909 Status: Chronic Assessment and Plan 56-year-old male with a PMH of Seizure Disorder, Migraine, Anxiety, Depression and Psoriasis who presented to the ER after syncopal event. Syncope: s/p syncopal event x2 w/ +head trauma. CT Head/C-Spine w/ no acute findings. Lightheadedness prior to event. Monitor on telemetry. Given IVF for hydration. ACS ruled out with negative serial cardiac enzymes x3 and EKG with NSR and no acute ischemic changes. Previously orthostatic negative, however mildly orthostatic today 5/2; educated on sleep position changes, LEXII hose. Carotid U/S unremarkable. With hx of seizures, checked EEG which was normal. Echocardiogram with normal systolic function, EF 60%. Telemetry monitoring shows sinus bradycardia. Consult cardiology. Dehydration: GFR 85, previously 121 on 09/05/15. Given IVF for hydration, repeat labs show improvement, GFR 109. Resolved. DC IVF. Acute Back Pain: secondary to fall over bench after syncope. Continue [place] prn for pain and flexeril prn spasms. Heating pad. PT consulted, recommends walker and outpatient PT at the [place]. Seizure Disorder: Controlled. No reported seizure activity. Valproic Acid level 49. Continue home medications. EEG negative. Migraine: Takes Tylenol at home, continue analgesics as needed. DVT Prophylaxis: SCD/Teds. Discharge Planning Follow-up cardiology recommendations. Problem Qualifiers (1) Syncope: Qualified Code: R55 - Syncope, unspecified syncope type Miguel Chery June 24, 2016 08:40
[2016-06-24 12:04] VITALS: BP 130/72; PULSE 51; RESP 20; TEMP 97.9; O2SAT 96
[2016-06-24] MEDS ORDERED: CYCL1TAB29 PO (12:08)
[2016-06-24] MEDS ORDERED: WALKER WHEELS/F1 MIS (12:10)
--- NOTE | 2016-06-24 12:21 | HHI.DS ---
Discharge Summary Admission Date Jun 21, 2016 at 19:24 Discharge Date: June 24, 2016 Admitting Diagnosis SYNCOPE (1) Syncope ICD Code: R55 Diagnosis: Principal (2) Dehydration ICD Code: E86.0 Diagnosis: Principal (3) Seizure disorder ICD Code: G40.909 Diagnosis: Secondary (4) Bradycardia ICD Code: R00.1 Diagnosis: Principal (5) Mild closed head injury ICD Code: S09.90XA Diagnosis: Principal Procedures None Brief History - From Admission This is a 56-year-old male with a PMH of Seizure Disorder, Migraine, Anxiety, Depression and Psoriasis who presented to the ER after syncopal event. Per patient he "didn't feel right all-day", was at [employer] with a friend and felt sudden onset of lightheadedness/dizziness and sat down on a bench, then had syncopal event w/ head trauma after striking head on ground. Reports 2 subsequent syncopal events as well. Denies seizure activity. On arrival, BP 120/69, HR 86, O2 sat 100% on RA, Afebrile. CBC unremarkable except for elevated neutrophil count. Chemistry essentially unremarkable GFR 85, previously 1 21-09/04 16. Troponin negative. INR 1.0. CT Head unremarkable. CT C-spine slight neural foraminal compromise, no acute findings. CXR with slight left lung base atelectasis. CBC/BMP: 06/22/16 0630 06/22/16 0630 Significant Findings Laboratory Tests Test 06/21/16 06/22/16 06/22/16 16:58 01:24 06:30 Neutrophils (%) (Auto) 74.3 % (16.0-70.0) Monocytes (%) (Auto) 9.4 % (0.0-8.0) 8.3 % (0.0-8.0) Blood Urea Nitrogen 22 MG/DL (7-18) Estimat Glomerular Filtration 85 ML/MIN (>89) Rate Troponin I LESS THAN 0.02 LESS THAN 0.02 LESS THAN 0.02 NG/ML NG/ML NG/ML (0.02-0.05) (0.02-0.05) (0.02-0.05) Valproic Acid (Depakene) Level 49 MCG/ML (50-100) Red Blood Count 4.31 MIL/MM3 (4.50-5.90) Hematocrit 37.5 % (39.0-51.0) Mean Platelet Volume 6.8 FL (7.0-11.0) Chloride Level 111 MEQ/L (98-107) Anion Gap 4 MEQ/L (5-15) Random Glucose 69 MG/DL (74-106) Calcium Level 8.0 MG/DL (8.5-10.1) Total Protein 6.2 GM/DL (6.4-8.2) Albumin 3.1 GM/DL (3.4-5.0) Imaging Last Impressions Carotid Artery Ultrasound 06/22/16 0000 Signed Impressions: Service Date/Time: Wednesday, June 22, 2016 10:25 - CONCLUSION: Carotid ultrasound within normal limits. Tristan Langford MD Head CT 06/21/161623 Signed Impressions: Service Date/Time: Tuesday, June 21, 2016 17:53 - CONCLUSION: Unremarkable study. Madan Dove MD Chest X-Ray 06/21/161623 Signed Impressions: Service Date/Time: Tuesday, June 21, 2016 16:32 - CONCLUSION: Slight left lung base atelectasis. Madan Dove MD Cervical Spine CT 06/21/161623 Signed Impressions: Service Date/Time: Tuesday, June 21, 2016 17:53 - CONCLUSION: Slight neural foramina compromise right C3-C4, left C5-C6, left C6-C7 and lateral recess compromise left C6-7. Madan Dove MD PE at Discharge GENERAL: Well-developed well-nourished. In no acute distress. SKIN: Warm and dry. No lesions noted. HEENT: Normocephalic. Pupils equal and round. Mucous membranes pink and moist. CARDIOVASCULAR: Bradycardic rate and rhythm. No murmur appreciated. RESPIRATORY: No accessory muscle use. Clear to auscultation. Breath sounds equal bilaterally. GASTROINTESTINAL: Abdomen soft, non-tender, nondistended. Bowel sounds x4. MUSCULOSKELETAL: No obvious deformities. No clubbing or cyanosis. No edema. NEUROLOGICAL: Awake and alert. No focal neurological deficits. Moves upper and lower extremities spontaneously. Normal speech. PSYCHIATRIC: Appropriate mood and affect; insight and judgment normal. Pt update on day of discharge Discussed with cardiology, Dr. Joe. Dr. Joe recommends follow-up with [place] [facility] as outpatient for long-term monitor for heart rate. He also recommends checking TSH, can be done as outpatient. Plan of care discussed with the patient, all questions answered, verbalizes understanding. Discharge home today. Hospital Course 56-year-old male with a PMH of Seizure Disorder, Migraine, Anxiety, Depression and Psoriasis who presented to the ER after syncopal event. Syncope: s/p syncopal event x2 w/ +head trauma. CT Head/C-Spine w/ no acute findings. Lightheadedness prior to event. Monitor on telemetry. Given IVF for hydration. ACS ruled out with negative serial cardiac enzymes x3 and EKG with NSR and no acute ischemic changes. Previously orthostatic negative, however mildly orthostatic today 06/24; educated on sleep position changes, LEXII hose. Carotid U/S unremarkable. With hx of seizures, checked EEG which was normal. Echocardiogram with normal systolic function, EF 60%. Telemetry monitoring did show sinus bradycardia. Consulted cardiology who recommended outpatient cardiology follow-up for event monitor. Dehydration: GFR 85, previously 121 on 09/05/15. Given IVF for hydration, repeat labs show improvement, GFR 109. Resolved. Acute Back Pain: secondary to fall over bench after syncope. Continue [place] prn for pain and flexeril prn spasms. Heating pad. PT consulted, recommends walker and outpatient PT at the [place]. Seizure Disorder: Controlled. No reported seizure activity. Valproic Acid level 49. Continue home medications. EEG negative. Pt Condition on Discharge: Stable Discharge Disposition: Discharge Home Discharge Time: > 30 minutes Discharge Instructions DIET: Follow Instructions for: As Tolerated, No Restrictions Activities you can perform: Regular-No Restrictions Other Activity Instructions: Sit and stand up slowly Follow up Referrals: Cardiology - 10 Days with [facility] PCP Follow-up - 1 Week with [facility] New Orders: TSH 3RD GEN - 3-5 Days New Medications: Walker with Front Wheels (Walker with Front Wheels) 1 Mis Mis 1 EA .ROUTE DIRECTED #1 Ref 0 EA Cyclobenzaprine (Flexeril) 10 Mg Tab 5 MG PO Q8H No driving on muscle relaxers PRN muscle spasms #15 TAB Hydrocodone-Acetaminophen (Hydrocodone-Acetaminophen) 5-325 mg Tab 1 TAB PO Q4H PRN PAIN SCALE 3 TO 5 #10 TAB Continued Medications: Clobetasol Topical (Clobetasol Topical) 0.05% Cream 1 APPLIC TOPICAL BID #15 Ref 0 GM Divalproex ER (Divalproex ER) 500 Mg Tab 1000 MG PO DAILY Control Seizures #60 Ref 0 TAB Fluoxetine HCl (Pmdd) (Fluoxetine HCl) 20 Mg Tab 60 MG PO DAILY Hydroxyzine Pamoate (Hydroxyzine Pamoate) 100 Mg Cap 100 MG PO QID PRN ITCHING Ref 0 CAP Lactic Acid (Ammonium Lactate) (Ammonium Lactate) 12 % Cre 1 APPLIC TOP BID APPLY TO: CRE Pyridostigmine ER (Pyridostigmine ER) 180 Mg Tab 60 MG PO TID Manage Myastenia Gravis #30 Ref 0 TAB Quetiapine Fumarate (Quetiapine Fumarate ER) 200 Mg Tab 150 MG PO HS Trazodone HCl (Trazodone HCl) 100 Mg Tab 200 MG PO HS Zolpidem (Zolpidem) 5 Mg Tab 5 MG PO HS PRN INSOMNIA Ref 0 TAB Miguel Chery June 24, 2016 12:20
--- NOTE | 2016-06-24 13:40 | MB ---
cc: GREG YOUSSEF DO DATE OF CONSULTATION: June 24, 2016 REASON FOR CONSULTATION Bradycardia with a history of syncope. HISTORY OF PRESENT ILLNESS Nate Bailey is a pleasant 56-year-old male who presented to [facility] emergency room on June 21, 2016 due to three syncopal episodes. [facility] to help [email or web address] but notes that he did not feel well today. He did eat breakfast that morning. He states that he attempted to drink water throughout the morning. While there he had a sudden onset of lightheadedness and dizziness and started have a slightly. Started having fuzziness of his vision as he started to get tunnel vision. He ended up passing out at that time for short period of time. The second time he was walking into [employer] and started getting a similar type feeling and went down to his knees until someone could help him up. The last time he was sitting on a tension at this time he had a similar type feeling and fell forward striking his head on the ground. After sitting there for a while he felt better so his fianc e took him home. At home his blood pressure was in the 70s over 50s and therefore his Fianc e urged him to come to the emergency room. I arrival to the emergency room the blood pressure was 120/69 with a heart rate of 86. He then was worked up for the syncopal episode and while here he was noted to be bradycardic on telemetry with heart rates in the 45-60 range consistently. I was asked to see him for consideration of further recommendations due to his syncope with bradycardia. In seeing him he is currently asymptomatic with no chest pain, shortness of breath or palpitations. PAST MEDICAL HISTORY 1. Seizure disorder. 2. Migraines 3. Anxiety. 4. Depression 5. Psoriasis. PAST SURGICAL HISTORY 1. Hernia repair. 2. Left eyelid surgery. 3. Sinus surgery. ALLERGIES 1. LOMUSTINE 2. PENICILLIN MEDICATIONS 1. Divalproex ER 1000 mg daily. 2. Floxuridine 60 mg daily. 3. Trazodone 200 mg every night. 4. Quetiapine ER 150 mg every night 5. Hydroxyzine 100 mg four times a day as needed for itching 6. Ambien 5 mg every night as needed for insomnia. 7. Hydrocodone / acetaminophen 5/325 mg every 4 hours as needed for pain. 8. Pyridostigmine ER 60 mg t.i.d. FAMILY HISTORY Denies premature coronary artery disease or sudden cardiac within the family. SOCIAL HISTORY Denies tobacco, alcohol or drugs. REVIEW OF SYSTEMS 14-systems were reviewed including osteopathic pertinent positives and negatives above otherwise negative. PHYSICAL EXAMINATION VITAL SIGNS: Temperature 98.0, heart rate 50, blood pressure 126/70, respirations 17, pulse ox 95% on room air. IN GENERAL: The patient appears well in no acute distress, alert awake and oriented x3. HEAD, EYES, EARS, NOSE, AND THROAT: Extraocular muscles intact. Mucous membranes moist. NECK: Supple. No JVD at 45 degrees. No carotid bruits heard bilaterally. Carotid upstroke is brisk in nature. HEART: Heart is regular rate and rhythm. Positive first and second heart sounds with a 1/6 holosystolic murmur noted at the apex. LUNGS: Clear to auscultation bilaterally. No wheezes, rales or rhonchi. ABDOMEN: Soft, nontender, nondistended. No organomegaly noted. EXTREMITIES: Show no clubbing, cyanosis or edema. Femoral and distal pulses intact bilaterally. NEUROLOGIC: No focal deficits. SKIN: Warm, dry and intact. Osteopathically, no kyphoscoliosis, lordosis or paraspinal tender points. LABORATORY FINDINGS Hemoglobin 13.1, hematocrit 37.5, platelets 168. BUN 16, creatinine 0.74, troponin negative x3. Electrocardiogram (June 21, 2016 at 16, 30) normal sinus rhythm, nonspecific ST-T wave changes. Echocardiogram (June 23, 2016) ejection fraction 60%, mild mitral regurgitation, mild tricuspid regurgitation. IMPRESSION 1. Syncopal episode with head trauma. 2. Dehydration. 3. Acute back pain secondary to fall. 4. History of seizure disorder 5. Asymptomatic bradycardia. 6. Migraines 7. Asymptomatic tachyarrhythmia.(Seven beat run of PAT) RECOMMENDATIONS 1. Mr. Bailey appears to have had three syncopal episodes and this may be multifactorial including his baseline bradycardia as well as dehydration. 2. At this time I found him up and walking and he feels fine without dizziness. His heart rate increases to 70s to 80s with walking. 3. He did have a short tachyarrhythmia of seven beats which appears to be PAT and not thought to be atrial fibrillation as the R to R interval was consistent. If he did have a tachyarrhythmia at a high enough rate. This could have been a cause for his lightheadedness. 4. Since being in the hospital he has had heart rates 45-60 beats per minute with no high-grade AV blocks. He is currently asymptomatic at these rates. 5. I believe that he is cardiovascularly stable for discharge but I did ask that he follow up with [facility] for consideration of an event monitor or loop recorder for long-term rhythm assessment to make sure that he has no vicki or tachy arrhythmias that cause these symptoms. 6. He should have his TSH checked due to his baseline bradycardia. 7. Lastly he is on Quetiapine and pyridostigmine which can both further potentiate bradycardia. I will leave this to his primary care physician to consider decreasing these if further events happen. Thank you for allowing me to see Nate Bailey, if there are any questions please do not hesitate to call. Greg Youssef DO VGP/michelle 11:57 AM /12:20 PM ANTONETTE
== END 2016-06-24 14:18 | disposition home or self-care (01) ==
LOC: NEPE 16:04 → NEDA 19:24 → NEPHCDU 21:54
PROVIDERS: ADMIT Internal Medicine; ATTEND Internal Medicine
DX: R55 Syncope and collapse (principal); S09.90XA Unspecified injury of head, initial encounter; E86.0 Dehydration; G43.909 Migraine, unspecified, not intractable, without status migrainosus; R94.31 Abnormal electrocardiogram [ECG] [EKG]; R00.1 Bradycardia, unspecified; G40.909 Epilepsy, unspecified, not intractable, without status epilepticus; L40.9 Psoriasis, unspecified; F41.9 Anxiety disorder, unspecified; F32.9 Major depressive disorder, single episode, unspecified; Z86.73 Personal history of transient ischemic attack (TIA), and cerebral infarction without residual deficits; W19.XXXA Unspecified fall, initial encounter; Z23 Encounter for immunization
CPT/HCPCS: 70450; 71010; 72125; 80053; 80164; 81001; 82550; 82552; 83880; 84484; 85025; 85610; 85730; 90732; 93005; 93306; 93880; 95819; 96374; 97162; 99285; G0378; G8987; G8988; J2270; J7030

== ENCOUNTER 2016-09-07 09:01 | Emergency (ER) | payer OTHER ==
[~2016-09-07] VITALS: Ht 175.3 cm; Wt 85.0 kg
[~2016-09-07 09:01] MED LIST changes: -ALPR1 PO; +AMMO12CR4 TOP; +CLOB0.055 TOPICAL; +CYCL1TAB29 PO; -DEPA500T3 PO; +DIVA500T3 PO; +FLUO1TAB17 PO; +HYDR-3516 PO; +HYDR100C PO; -INDO50 PO; -PERC5TAB12 PO; -PROZ20CA11 PO; +PYRI1TAB8 PO; +QUET-88 PO; -SERO50TA4 PO; -TRAZ100 PO; +TRAZ100T5 PO; +WALKER WHEELS/F1 MIS; -ZOLP10TA3 PO; +ZOLP5TAB3 PO
[2016-09-07 09:04] VITALS: BP 118/73; PULSE 68; RESP 20; TEMP 97.4; O2SAT 98
[2016-09-07] MEDS ORDERED: MELA5TAB15 PO (09:19)
[2016-09-07] MEDS ORDERED: ACETAMINOPHEN/HYDROcodone 325 MG/5 MG TAB PO ONE (10:15)
--- NOTE | 2016-09-07 10:41 | PD ---
HPI Chief Complaint: Pain: Acute or Chronic Time Seen by Provider: 09:42 Travel History International Travel<30 days: No Contact w/Intl Traveler<30days: No Traveled to known affect area: No History of Present Illness HPI Patient is a 56-year-old male who comes in complaining of pain to his right leg from his hip down to his knee. He has had this pain ever since having a hernia repair 2 years ago. He says in the past few months is gotten worse. Says recently he has not been able to sleep at night due to the pain. He says the top of his leg feels numb. He has seen his primary care doctor for this and has an appointment with a neurologist next month. He denies any new injuries. He says sometimes the pain is so bad that his leg gives out. He denies any back pain. He denies any incontinence. He denies any fever or chills. PFSH Past Medical History Arthritis: Yes Anxiety: Yes Depression: Yes Cerebrovascular Accident: Yes Diabetes: No Musculoskeletal: Yes (DEGENERATIVE DISC DISEASE, BULGING DISC) Integumentary: Yes (PSORIASIS) Immunizations Current: Yes Past Surgical History Abdominal Surgery: Yes (HERNIA REPAIR RIGHT LOWER GROIN) Eye Surgery: Yes (left eyelid) Other Surgery: Yes (SINUS) Social History Alcohol Use: No (3 years ago) Tobacco Use: No Substance Use: No Allergies-Medications (Allergen,Severity, Reaction): Coded Allergies: Lomustine (Verified Allergy, Severe, Rash, 09/07/16) Penicillin (Verified Allergy, Severe, Rash, 09/07/16) Reported Meds & Prescriptions Reported Meds & Active Scripts Active Walker with Front Wheels (Device) 1 Mis Mis 1 Ea .ROUTE DIRECTED Flexeril (Cyclobenzaprine HCl) 10 Mg Tab 5 Mg PO Q8H PRN No driving on muscle relaxers Hydrocodone-Acetaminophen 5-325 mg Tab 1 Tab PO Q4H PRN Reported Melatonin 5 Mg Tab 6 Mg PO HS Ammonium Lactate (Lactic Acid) 12 % Cre 1 Applic TOP BID APPLY TO: Clobetasol Topical (Clobetasol Propionate) 0.05% Cream 1 Applic TOPICAL BID Pyridostigmine ER (Pyridostigmine [place]) 180 Mg Tab 60 Mg PO TID Fluoxetine HCl (Fluoxetine HCl (Pmdd)) 20 Mg Tab 60 Mg PO DAILY Quetiapine Fumarate ER (Quetiapine Fumarate) 200 Mg Tab 150 Mg PO HS Hydroxyzine Pamoate 100 Mg Cap 100 Mg PO QID PRN Divalproex ER (Divalproex Sodium) 500 Mg Tab 1,000 Mg PO DAILY Review of Systems Except as stated in HPI: all other systems reviewed are Neg General / Constitutional: No: Fever, Chills HENT: No: Headaches, Lightheadedness Cardiovascular: No: Chest Pain or Discomfort Respiratory: No: Shortness of Breath Gastrointestinal: No: Nausea, Vomiting Musculoskeletal: Positive: Pain, No: Edema Skin: No Rash, No Change in Pigmentation Neurologic: Positive: Paresthesia Physical Exam Narrative GENERAL: Awake and alert, in no acute distress. SKIN: Focused skin assessment warm/dry. No erythema or rashes, no signs of infection. HEAD: Atraumatic. Normocephalic. EYES: Pupils equal and round. No scleral icterus. ENT: Mucous membranes pink and moist. NECK: Trachea midline. No JVD. CARDIOVASCULAR: Regular rate and rhythm. No murmur appreciated. RESPIRATORY: No accessory muscle use. Clear to auscultation. Breath sounds equal bilaterally. GASTROINTESTINAL: Abdomen soft, non-tender, nondistended. No evidence of right inguinal hernia. MUSCULOSKELETAL: No obvious deformities. No clubbing. No cyanosis. No edema. No tenderness to palpation of the right leg. No tenderness to palpation of the lumbar spine. NEUROLOGICAL: Awake and alert. No obvious cranial nerve deficits. Motor grossly within normal limits. Normal speech. Good strength in both legs. Decreased sensation to the right quadricep area. Pedal pulses intact. PSYCHIATRIC: Appropriate mood and affect; insight and judgment normal. Data Data Last Documented VS Vital Signs Date Time Temp Pulse Resp B/P Pulse Ox O2 Delivery O2 Flow Rate FiO2 09/07/16 09:04 97.4 68 20 118/73 98 Room Air Orders Acetamin-Hydrocod 325-5 Mg ([place] 5-325 (09/07/16 10:15) MDM Medical Decision Making Medical Screen Exam Complete: Yes Emergency Medical Condition: Yes Medical Record Reviewed: Yes Differential Diagnosis Muscle strain versus nerve injury versus chronic pain Narrative Course Patient is a 56-year-old male comes in complaining of right leg pain. He has had this pain for a while, but says he cannot take it anymore. Exam shows some decreased sensation to the top of the right leg. Patient has no incontinence, no back pain, no injury. This is likely nerve pain from his surgery. He has an appointment with neurology next month. He is given pain medicine here. Will be discharged with a prescription for pain medicine. He is advised to keep his follow-up appointment. Advised to return to the emergency department as needed for any worsening symptoms. Diagnosis Primary Impression: Leg pain, anterior Qualified Code: M79.604 - Leg pain, anterior, right Patient Instructions: General Instructions, Leg Pain (ED), Peripheral Neuropathy (ED) Additional Instructions: Follow up at your scheduled appointments. Take pain medicine as needed. Return to the ED as needed for any worsening symptoms. Scripts Hydrocodone-Acetaminophen (Lortab)5-325 Mg Tab1 Tab PO Q6H PRN (PAIN) #20 TAB Ref 0 Prov:Gillian Richardson MD 09/07/16 Disposition: 01 DISCHARGE HOME Condition: Stable Gillian Richardson MD Sep 07, 2016 10:41
[2016-09-07] MEDS ORDERED: HYDR-3533 PO (10:43)
== END 2016-09-07 11:01 | disposition home or self-care (01) ==
LOC: NEPD 09:01
DX: M79.604 Pain in right leg (principal); R20.0 Anesthesia of skin; Z87.39 Personal history of other diseases of the musculoskeletal system and connective tissue; Z86.59 Personal history of other mental and behavioral disorders; Z86.79 Personal history of other diseases of the circulatory system; Z87.2 Personal history of diseases of the skin and subcutaneous tissue
CPT/HCPCS: 99283

== ENCOUNTER 2017-03-06 18:46 | Emergency (ER) | payer OTHER ==
[~2017-03-06] VITALS: Ht 175.3 cm; Wt 84.1 kg
[~2017-03-06 18:46] MED LIST changes: +CYCL10TA PO; -CYCL1TAB29 PO; +HYDR-3533 PO; +MELA5 PO; -TRAZ100T5 PO; -ZOLP5TAB3 PO
[2017-03-06 18:47] VITALS: BP 138/82; PULSE 77; RESP 12; TEMP 98.3; O2SAT 99
--- NOTE | 2017-03-07 11:27 | PD ---
Physical Exam Date Seen by Provider: Mar 06, 2017 Time Seen by Provider: 22:33 Narrative 56 year old male presents to the emergency department for evaluation of a headache that radiates to his neck for 6 days. He does report a history of migraine headaches, but states he does not normally last this long. He has tried Fioricet, Depakote, Excedrin Migraine without improvement. Current pain is 7/10. Data Data Last Documented VS Vital Signs Date Time Temp Pulse Resp B/P (MAP) Pulse Ox O2 Delivery O2 Flow Rate FiO2 03/06/17 18:47 98.3 77 12 138/82 (100) 99 MDM Supervised Visit with RICHARD: No Narrative Course 56-year-old male presents to the emergency department for evaluation of a headache for the past 6 days. Patient initially seen in triage. He is awaiting a medical bed for further evaluation and disposition. Patient left AGAINST MEDICAL ADVICE before being moved to a medical bed. Diagnosis Primary Impression: Left against medical advice Additional Impression: Headache Qualified Codes: R51 - Headache Disposition: 07 AGAINST MEDICAL ADVICE Kelly Steiner Mar 07, 2017 11:27
== END 2017-03-06 22:33 | disposition left against medical advice (07) ==
LOC: NED 18:46
DX: R51 Headache (principal); Z53.21 Procedure and treatment not carried out due to patient leaving prior to being seen by health care provider
CPT/HCPCS: 99281

== ENCOUNTER 2017-03-24 17:22 | Emergency (ER) | payer OTHER ==
[~2017-03-24] VITALS: Ht 175.3 cm; Wt 84.1 kg
[2017-03-24 17:24] VITALS: BP 133/78; PULSE 87; RESP 17; TEMP 98.1; O2SAT 98
--- NOTE | 2017-03-24 18:24 | RADRPT ---
EXAM DATE/TIME: 03/24/2017 18:02 [facility] COMPARISON: No previous studies available for comparison. INDICATIONS : Short of breath. MEDICAL HISTORY : None. SURGICAL HISTORY : None. ENCOUNTER: Initial ACUITY: 1 day PAIN SCORE: 5/10 LOCATION: Bilateral chest FINDINGS: Discoid atelectasis is noted within the left lung base. The heart is normal. The pulmonary vascular p attern is normal. The right lung is clear. Mild degenerative changes and scoliosis of the thoracic sp ine are noted. CONCLUSION: Left basilar discoid atelectasis. Sanford Austin MD on March 24, 2017 at 18:20 Board Certified Radiologist. This report was verified electronically.
--- NOTE | 2017-03-24 19:03 | RADRPT ---
EXAM DATE/TIME: 03/24/2017 18:52 [facility] COMPARISON: CT BRAIN W/O CONTRAST, June 21, 2016, 17:53. INDICATIONS : Head pain due to fall. RADIATION DOSE: 36.49 CTDIvol (mGy) MEDICAL HISTORY : Cerebrovascular disease. SURGICAL HISTORY : Hernia repair. ENCOUNTER: Initial ACUITY: 1 day PAIN SCALE: 8/10 LOCATION: cranial TECHNIQUE: Multiple contiguous axial images were obtained of the head. Using automated exposure control and adj ustment of the mA and/or kV according to patient size, radiation dose was kept as low as reasonably a chievable to obtain optimal diagnostic quality images. DICOM format image data is available electro nically for review and comparison. FINDINGS: CEREBRUM: The ventricles are normal for age. No evidence of midline shift, mass lesion, hemorrhage or acute in farction. No extra-axial fluid collections are seen. POSTERIOR FOSSA: The cerebellum and brainstem are intact. The 4th ventricle is midline. The cerebellopontine angle i s unremarkable. EXTRACRANIAL: The visualized portion of the orbits is intact. SKULL: The calvaria is intact. No evidence of skull fracture. CONCLUSION: No acute disease. Sanford Austin MD on March 24, 2017 at 18:59 Board Certified Radiologist. This report was verified electronically.
--- NOTE | 2017-03-24 19:18 | PD ---
HPI Chief Complaint: Fall Time Seen by Provider: 19:16 Travel History International Travel<30 days: No Contact w/Intl Traveler<30days: No Traveled to known affect area: No History of Present Illness HPI 57-year-old male with remote history of CVA, myasthenia gravis, presents to the emergency department for evaluation following a trip and fall down 5-7 stairs approximately 4 hours ago. Patient is uncertain if he struck his head or less consciousness, however his states that he did remain conscious through the entire event.. He reports right anterior rib pain, aching, constant, worse with deep inspiration. He has had no nausea or vomiting. He has no new focal deficits or weakness. Patient denies any hemoptysis. He has been ambulatory. His reported that he is acting normal since the fall. He is not any anticoagulation therapy. He has no other symptoms to report at this time. PFSH Past Medical History Arthritis: Yes Anxiety: Yes Depression: Yes Cerebrovascular Accident: Yes Diabetes: No Musculoskeletal: Yes (DEGENERATIVE DISC DISEASE, BULGING DISC) Integumentary: Yes (PSORIASIS) Immunizations Current: Yes Past Surgical History Abdominal Surgery: Yes (HERNIA REPAIR RIGHT LOWER GROIN) Eye Surgery: Yes (left eyelid) Other Surgery: Yes (SINUS) Social History Alcohol Use: No (3 years ago) Tobacco Use: No Substance Use: No Allergies-Medications (Allergen,Severity, Reaction): Coded Allergies: lomustine (Unverified Allergy, Severe, Rash, 10/07/16) penicillin G (Unverified Allergy, Severe, Rash, 10/07/16) Reported Meds & Prescriptions Reported Meds & Active Scripts Active Walker with Front Wheels (Device) 1 Mis Mis 1 Ea .ROUTE DIRECTED Reported Topamax (Topiramate) 25 Mg Tab 25 Mg PO BID Trazodone (Trazodone HCl) 100 Mg Tablet 200 Mg PO HS Prednisone 5 Mg Tab 5 Mg PO DAILY Melatonin 5 Mg Tab 6 Mg PO HS Pyridostigmine ER (Pyridostigmine [place]) 180 Mg Tab 60 Mg PO TID Fluoxetine HCl (Fluoxetine HCl (Pmdd)) 20 Mg Tab 60 Mg PO DAILY Quetiapine Fumarate ER (Quetiapine Fumarate) 200 Mg Tab 150 Mg PO HS Divalproex ER (Divalproex Sodium) 500 Mg Tab 1,000 Mg PO DAILY Review of Systems Except as stated in HPI: all other systems reviewed are Neg Physical Exam Narrative GENERAL: Well-nourished male patient, in no acute distress. SKIN: Focused skin assessment warm/dry. HEAD: Atraumatic. Normocephalic. EYES: Pupils equal and round. No scleral icterus. No injection or drainage. EOMI. PERRL ENT: Mucosa pink and moist. No erythema or exudates. No uvular edema. No uvular , palatal, or tonsillar deviation. Airway patent. Nasal turbinates appear normal without nasal blood, purulent drainage or septal hematoma. NECK: Trachea midline. No JVD. No cervical spine tenderness. No limitations in range of motion cervical spine. CARDIOVASCULAR: Regular rate and rhythm. No murmur appreciated. RESPIRATORY: No accessory muscle use. Clear to auscultation. Breath sounds equal bilaterally. Tenderness elicited palpation of the right anterior rib cage. No crepitus. Even respirations. GASTROINTESTINAL: Abdomen soft, non-tender, nondistended. No guarding. No rebound tenderness. Hepatic and splenic margins not palpable. MUSCULOSKELETAL: No obvious deformities. No clubbing. No cyanosis. No edema. NEUROLOGICAL: Awake and alert. No obvious cranial nerve deficits. Motor grossly within normal limits. Normal speech. PSYCHIATRIC: Appropriate mood and affect; insight and judgment normal. Data Data Last Documented VS Vital Signs Date Time Temp Pulse Resp B/P (MAP) Pulse Ox O2 Delivery O2 Flow Rate FiO2 03/24/17 19:15 87 17 98 Room Air 03/24/17 17:24 98.1 133/78 (96) Orders Orders Ct Brain W/O Iv Contrast(Rout) (03/24/17 ) Ct Cerv Spine W/O Contrast (03/24/17 ) Chest, Pa & Lat (03/24/17 ) Ketorolac Inj (Toradol Inj) (03/24/17 19:30) Orphenadrine Inj (Norflex Inj) (03/24/17 19:30) Ed Discharge Order (03/24/17 19:40) [facility] Medical Decision Making Medical Screen Exam Complete: Yes Emergency Medical Condition: Yes Medical Record Reviewed: Yes Differential Diagnosis Minor head injury versus concussion versus intracranial hemorrhage versus rib contusion versus fracture versus pneumothorax Narrative Course 57-year-old male presents to emergency department following a fall. Patient appears without distress. Vital signs are stable. He does have anterior rib cage tenderness to palpation, otherwise exam is benign. Patient is treated for pain. Imaging studies are complete and reviewed. I have discussed with the patient. He'll be discharged home with pain control. He is encouraged to follow-up with primary care provider and return immediately with any acute worsening of symptoms Last Impressions Head CT 03/24/17 0000 Signed Impressions: Service Date/Time: Friday, March 24, 2017 18:52 - CONCLUSION: No acute disease. Sanford Austin MD Chest X-Ray 03/24/17 0000 Signed Impressions: Service Date/Time: Friday, March 24, 2017 18:02 - CONCLUSION: Left basilar discoid atelectasis. Sanford Austin MD Cervical Spine CT 03/24/17 0000 Signed Impressions: Service Date/Time: Friday, March 24, 2017 18:52 - CONCLUSION: 1. Moderate to severe bilateral foraminal narrowing at C5-6 and C6-7. 2. Moderate to severe right neuroforaminal narrowing and mild left neural foraminal at C3-4 and C4- 5. 3. Mild spinal stenosis is noted at C5-6. 4. Diffuse cervical spondylosis. 5. No acute fracture or prevertebral soft tissue swelling. Sanford Austin MD Diagnosis Primary Impression: Minor closed head injury Additional Impression: Contusion of rib on right side Qualified Codes: S20.211A - Contusion of right front wall of thorax, initial encounter Referrals: Primary Care Physician Patient Instructions: General Instructions, Head Injury (ED), Rib Contusion (ED ) Additional Instructions: It is important that you take deep breaths and cough to reduce your risk of getting pneumonia Follow-up with a primary care provider Return immediately with any acute worsening symptoms Med/Other Pt SpecificInfo: Prescription(s) given Scripts Methocarbamol (Robaxin) 500 Mg Tab 500 MG PO QID Y for MUSCLE SPASM, #20 TAB 0 Refills Prov: Christy Pope 03/24/17 Ibuprofen (Ibuprofen) 600 Mg Tab 600 MG PO Q8HR Y for PAIN, #30 TAB 0 Refills Prov: Christy Pope 03/24/17 Disposition: 01 DISCHARGE HOME Condition: Stable Christy Pope Mar 24, 2017 19:18
[2017-03-24] MEDS ORDERED: TOPI25 PO (19:24)
[2017-03-24] MEDS ORDERED: PRED5TAB PO (19:24)
[2017-03-24] MEDS ORDERED: TRAZ100T10 PO (19:24)
[2017-03-24] MEDS ORDERED: KETOROLAC TROMETHAMINE 60 MG/2 ML (IM) VIAL IM ONE (19:30)
[2017-03-24] MEDS ORDERED: ORPHENADRINE INJ 60 MG/2 ML AMP IM ONE (19:30)
--- NOTE | 2017-03-24 19:30 | RADRPT ---
EXAM DATE/TIME: 03/24/2017 18:52 [facility] COMPARISON: CT CERVICAL SPINE W/O CONTRAST, June 21, 2016, 17:53. INDICATIONS : Neck pain due to fall. RADIATION DOSE: 16.48 CTDIvol (mGy) MEDICAL HISTORY : Cerebrovascular disease. SURGICAL HISTORY : Hernia repair. ENCOUNTER: Initial ACUITY: 1 day PAIN SCALE: 8/10 LOCATION: Bilateral neck region. TECHNIQUE: Volumetric scanning of the cervical spine was performed. Multiplanar reconstructions in the sagittal, coronal and oblique axial planes were performed. Using automated exposure control and adjustment o f the mA and/or kV according to patient size, radiation dose was kept as low as reasonably achievable to obtain optimal diagnostic quality images. DICOM format image data is available electronically f or review and comparison. FINDINGS: There is no acute fracture or prevertebral soft tissue swelling. Cervical spondylosis is noted at all levels. Moderate to severe right neural foraminal narrowing and mild left neural foraminal narrowing is noted at C3-4 and C4-5. Moderate to severe bilateral foraminal narrowing is noted at C5-6 and C6- 7. Mild scoliosis of the cervical spine is noted. Mild spinal stenosis is noted at C5-6. The bony rel ationship and alignment between C1 and C2 is well maintained. CONCLUSION: 1. Moderate to severe bilateral foraminal narrowing at C5-6 and C6-7. 2. Moderate to severe right neuroforaminal narrowing and mild left neural foraminal at C3-4 and C4-5. 3. Mild spinal stenosis is noted at C5-6. 4. Diffuse cervical spondylosis. 5. No acute fracture or prevertebral soft tissue swelling. Sanford Austin MD on March 24, 2017 at 19:21 Board Certified Radiologist. This report was verified electronically.
[2017-03-24] MEDS ORDERED: IBUP-232 PO (19:47)
[2017-03-24] MEDS ORDERED: ROBA500T PO (19:47)
== END 2017-03-24 20:28 | disposition home or self-care (01) ==
LOC: NEPD 17:22
DX: S09.90XA Unspecified injury of head, initial encounter (principal); S20.211A Contusion of right front wall of thorax, initial encounter; W10.9XXA Fall (on) (from) unspecified stairs and steps, initial encounter; Y92.009 Unspecified place in unspecified non-institutional (private) residence as the place of occurrence of the external cause
CPT/HCPCS: 70450; 71046; 72125; 96372; 99284; J1885; J2360

== ENCOUNTER 2017-08-09 15:54 | Emergency (ER) | payer OTHER ==
[~2017-08-09] VITALS: Ht 175.3 cm; Wt 74.0 kg
[~2017-08-09 15:54] MED LIST changes: -AMMO12CR4 TOP; -CLOB0.055 TOPICAL; -CYCL10TA PO; -HYDR-3516 PO; -HYDR-3533 PO; -HYDR100C PO; +IBUP-232 PO; +PRED5TAB PO; +ROBA500T PO; +TOPI25 PO; +TRAZ100T10 PO
[2017-08-09 15:56] VITALS: BP 133/86; PULSE 106; RESP 16; TEMP 97.1; O2SAT 98
[2017-08-09] MEDS ORDERED: LURA40 PO (17:00)
[2017-08-09] MEDS ORDERED: RIZA10TA2 (17:00)
[2017-08-09] MEDS ORDERED: HYDR50CA PO (17:00)
[2017-08-09] MEDS ORDERED: LURA80 PO (17:00)
[2017-08-09] MEDS ORDERED: BUPR4MIS SL (17:02)
[2017-08-09 17:10] VITALS: RESP 18; O2SAT 99
[2017-08-09] MEDS ORDERED: SODIUM CHLORIDE 0.9% FLUSH 10 ML FLUSH IVF PRN (17:15)
--- NOTE | 2017-08-09 17:31 | RADRPT ---
EXAM DATE: 08/09/2017 5:29 PM EDT AGE/SEX: 57 years / Male INDICATIONS: Heart Palpitations and loss of Weight CLINICAL DATA: This is the patient's initial encounter. Patient reports that signs and symptoms have been present for 1 day and indicates a pain score of 0/10. MEDICAL/SURGICAL HISTORY: None. None. COMPARISON: [facility], CHEST SINGLE AP, 06/21/2016. . FINDINGS: A single AP view of the chest demonstrates the lungs to be symmetrically aerated without evidence of mass, infiltrate or effusion. No evidence of pneumothorax. The cardiomediastinal contours are unrema rkable. Osseous structures are intact. CONCLUSION: The lungs are clear. Electronically signed by: Ky Suarez MD 08/09/2017 5:30 PM EDT
--- NOTE | 2017-08-09 17:33 | PD ---
HPI Chief Complaint: General Weakness Time Seen by Provider: 17:06 Travel History International Travel<30 days: No Contact w/Intl Traveler<30days: No Traveled to known affect area: No History of Present Illness HPI 57[facility]-old male [facility] with history of PTSD, migraine headaches, presents to the ER today for several months history of weight loss of over 47 pounds since March, decreased appetite, feeling weak today, dizzy. He denies any fevers, vomiting, chest pains, trouble breathing, or other symptoms. [facility] but [facility] not found why he is having issues. Modifying Factors: None Associated Signs & Symptoms: General weakness, dizziness, decreased appetite, weight loss Risk Factors: None PFSH Past Medical History Arthritis: Yes Anxiety: Yes Depression: Yes Cerebrovascular Accident: Yes Diabetes: No Musculoskeletal: Yes (DEGENERATIVE DISC DISEASE, BULGING DISC) Integumentary: Yes (PSORIASIS) Immunizations Current: Yes Past Surgical History Abdominal Surgery: Yes (HERNIA REPAIR RIGHT LOWER GROIN) Eye Surgery: Yes (left eyelid) Other Surgery: Yes (SINUS) Social History Alcohol Use: No (3 years ago) Tobacco Use: No Substance Use: No Allergies-Medications (Allergen,Severity, Reaction): Coded Allergies: lomustine (Verified Allergy, Severe, Rash, 08/09/17) penicillin G (Verified Allergy, Severe, Rash, 08/09/17) Reported Meds & Prescriptions Reported Meds & Active Scripts Active Ibuprofen 600 Mg Tab 600 Mg PO Q8HR PRN Reported Suboxone Sublingual Film (Buprenorphine-Naloxone Sublingual Film) 4-1 Mg Film 1 Film SL Unique ID number required: Rizatriptan (Rizatriptan Benzoate) 10 Mg Tab 10 Mg Latuda (Lurasidone) 80 Mg Tab 80 Mg PO DAILY Latuda (Lurasidone) 40 Mg Tab 40 Mg PO BID Hydroxyzine Pamoate 50 Mg Cap 50 Mg PO TID Topamax (Topiramate) 25 Mg Tab 200 Mg PO HS Trazodone (Trazodone HCl) 100 Mg Tablet 200 Mg PO HS Melatonin 5 Mg Tab 6 Mg PO HS Fluoxetine HCl (Fluoxetine HCl (Pmdd)) 20 Mg Tab 60 Mg PO DAILY Review of Systems Except as stated in HPI: all other systems reviewed are Neg Physical Exam Narrative GENERAL: Well-developed, thin middle-age male patient currently in mild distress. Awake and oriented 3. SKIN: Focused skin assessment warm/dry. HEAD: Atraumatic. Normocephalic. EYES: Pupils equal and round. No scleral icterus. No injection or drainage. ENT: No nasal bleeding or discharge. Mucous membranes pink and moist. NECK: Trachea midline. No JVD. CARDIOVASCULAR: Regular rate and rhythm. No murmur appreciated. RESPIRATORY: No accessory muscle use. Clear to auscultation. Breath sounds equal bilaterally. GASTROINTESTINAL: Abdomen soft, non-tender, nondistended. Hepatic and splenic margins not palpable. MUSCULOSKELETAL: No obvious deformities. No clubbing. No cyanosis. No edema. NEUROLOGICAL: Awake and alert. No obvious cranial nerve deficits. Motor grossly within normal limits. Normal speech. PSYCHIATRIC: Appropriate mood and affect; insight and judgment normal. Data Data Last Documented VS Vital Signs Date Time Temp Pulse Resp B/P (MAP) Pulse Ox O2 Delivery O2 Flow Rate FiO2 08/09/17 17:10 18 99 Room Air 08/09/17 15:56 97.1 106 133/86 (102) Orders Orders Electrocardiogram (08/09/17 17:06) Complete Blood Count With Diff (08/09/17 17:06) Comprehensive Metabolic Panel (08/09/17 17:06) Magnesium (Mg) (08/09/17 17:06) Ckmb (Isoenzyme) Profile (08/09/17 17:06) Troponin I (08/09/17 17:06) Urinalysis - C+S If Indicated (08/09/17 17:06) Chest, Single Ap (08/09/17 17:06) Ct Brain W/O Iv Contrast(Rout) (08/09/17 17:06) Ecg Monitoring (08/09/17 17:06) Iv Access Insert/Monitor (08/09/17 17:06) Oximetry (08/09/17 17:06) Sodium Chloride 0.9% Flush (Ns Flush) (08/09/17 17:15) Ed Discharge Order (08/09/17 19:33) Labs Laboratory Tests Test 08/09/17 17:10 08/09/17 18:50 White Blood Count 9.5 TH/MM3 Red Blood Count 5.07 MIL/MM3 Hemoglobin 15.6 GM/DL Hematocrit 43.4 % Mean Corpuscular Volume 85.7 FL Mean Corpuscular Hemoglobin 30.7 PG Mean Corpuscular Hemoglobin Concent 35.8 % Red Cell Distribution Width 12.9 % Platelet Count 234 TH/MM3 Mean Platelet Volume 6.6 FL Neutrophils (%) (Auto) 69.6 % Lymphocytes (%) (Auto) 21.1 % Monocytes (%) (Auto) 8.4 % Eosinophils (%) (Auto) 0.3 % Basophils (%) (Auto) 0.6 % Neutrophils # (Auto) 6.6 TH/MM3 Lymphocytes # (Auto) 2.0 TH/MM3 Monocytes # (Auto) 0.8 TH/MM3 Eosinophils # (Auto) 0.0 TH/MM3 Basophils # (Auto) 0.1 TH/MM3 CBC Comment AUTO DIFF Differential Comment AUTO DIFF CONFIRMED Blood Urea Nitrogen 22 MG/DL Creatinine 0.85 MG/DL Random Glucose 126 MG/DL Total Protein 8.4 GM/DL Albumin 4.1 GM/DL Calcium Level 9.2 MG/DL Magnesium Level 2.1 MG/DL Alkaline Phosphatase 63 U/L Aspartate Amino Transf (AST/SGOT) 9 U/L Alanine Aminotransferase (ALT/SGPT) 12 U/L Total Bilirubin 1.0 MG/DL Sodium Level 142 MEQ/L Potassium Level 3.4 MEQ/L Chloride Level 106 MEQ/L Carbon Dioxide Level 24.4 MEQ/L Anion Gap 12 MEQ/L Estimat Glomerular Filtration Rate 93 ML/MIN Total Creatine Kinase 46 U/L Troponin I LESS THAN 0.02 NG/ML Urine Color YELLOW Urine Turbidity CLEAR Urine pH 6.0 Urine Specific [place] 1.010 Urine Protein NEG mg/dL Urine Glucose (UA) NEG mg/dL Urine Ketones NEG mg/dL Urine Occult Blood SMALL Urine Nitrite NEG Urine Bilirubin NEG Urine Urobilinogen 4.0 OR GREATER mg/dL Urine Leukocyte Esterase NEG Urine RBC 2 /hpf Urine WBC 4 /hpf Urine Hyaline Casts 3 /lpf Urine Mucus MOD /lpf Microscopic Urinalysis Comment CULT NOT INDICATED MDM Medical Decision Making Medical Screen Exam Complete: Yes Emergency Medical Condition: Yes Medical Record Reviewed: Yes Interpretation(s) Laboratory Tests Test 08/09/17 17:10 08/09/17 18:50 Mean Platelet Volume 6.6 FL (7.0-11.0) Monocytes (%) (Auto) 8.4 % (0.0-8.0) Blood Urea Nitrogen 22 MG/DL (7-18) Random Glucose 126 MG/DL (74-106) Total Protein 8.4 GM/DL (6.4-8.2) Aspartate Amino Transf (AST/SGOT) 9 U/L (15-37) Potassium Level 3.4 MEQ/L (3.5-5.1) Troponin I LESS THAN 0.02 NG/ML Urine Occult Blood SMALL (NEG) Urine Urobilinogen 4.0 OR GREATER mg/dL (LESS Urine Mucus MOD /lpf (OCC) Last [address] 08/09/17 170 Signed Impressions: CONCLUSION: 1. No acute intracranial abnormalities. Chest X-Ray 08/09/171705 Signed Impressions: CONCLUSION: The lungs are clear. Differential Diagnosis Dehydration versus orthostasis versus electrolyte abnormalities versus dysrhythmias versus sepsis versus acute intracranial processes Narrative Course Lab work, x-rays, all are fairly unremarkable. Vital signs are stable in the ER. At this point, I do not see any obvious acute issues and my plan would be to release him with follow-up to primary care doctor. Return for worsening in symptoms as necessary. The plan has been discussed with him and he states understanding. Diagnosis Primary Impression: Dehydration Disposition: 01 DISCHARGE HOME Condition: Stable Kyle Goyal MD Aug 09, 2017 17:33
[2017-08-09 17:34] LABS: AUTOMATED NEUTROPHIL # 6.6 TH/MM3 (1.8-7.7); BASOPHIL # 0.1 TH/MM3 (0-0.2); BASOPHIL % 0.6 % (0.0-2.0); EOSINOPHIL % 0.3 % (0.0-4.0); HEMATOCRIT 43.4 % (39.0-51.0); HEMOGLOBIN 15.6 GM/DL (13.0-17.0); LYMPH % 21.1 % (9.0-44.0); MEAN CELL VOLUME 85.7 FL (80.0-100.0); MEAN CORPUSCULAR HEMOGLOBIN 30.7 PG (27.0-34.0); MEAN CORPUSCULAR HGB CONC 35.8 % (32.0-36.0); MEAN PLATELET VOLUME 6.6 FL (7.0-11.0); MONO % 8.4 % (0.0-8.0); MONOCYTE # 0.8 TH/MM3 (0-0.9); NEUT % 69.6 % (16.0-70.0); PLATELET COUNT 234 TH/MM3 (150-450); RED BLOOD COUNT 5.07 MIL/MM3 (4.50-5.90); RED CELL DISTRIBUTION WIDTH 12.9 % (11.6-17.2); WHITE BLOOD COUNT 9.5 TH/MM3 (4.0-11.0)
--- NOTE | 2017-08-09 17:53 | RADRPT ---
EXAM DATE: 08/09/2017 5:46 PM EDT AGE/SEX: 57 years / Male INDICATIONS: Dizziness; patient also complains of significant weight loss and loss of appetite. CLINICAL DATA: This is the patient's initial encounter. Patient reports that signs and symptoms have been present for 2 months and indicates a pain score of 0/10. MEDICAL/SURGICAL HISTORY: Cerebrovascular disease. . Hernia repair RADIATION DOSE: 39.96 CTDI (mGy) COMPARISON: [facility] [place], CT BRAIN W/O CONTRAST, 03/24/2017. . TECHNIQUE: CT of the head without contrast. Using automated exposure control and adjustment of the mA and/or kV according to patient size, radiation dose was kept as low as reasonably achievable to ob tain optimal diagnostic quality images. FINDINGS: Cerebrum: The ventricles are normal for age. No evidence of midline shift, mass lesion, hemorrhage or acute infarction. No extraaxial fluid collections are seen. Posterior Fossa: The cerebellum and brainstem are intact. The 4th ventricle is midline. The cerebe llopontine angle is unremarkable. Extracranial: The visualized portion of the orbits is intact. Skull: The calvaria is intact. No evidence of skull fracture. CONCLUSION: 1. No acute intracranial abnormalities. Electronically signed by: Nate Bah MD 08/09/2017 5:51 PM EDT
[2017-08-09 17:57] LABS: ALBUMIN 4.1 GM/DL (3.4-5.0); AST (GOT) 9 U/L (15-37); BICARBONATE 24.4 MEQ/L (21.0-32.0); BLOOD UREA NITROGEN 22 MG/DL (7-18); CALCIUM 9.2 MG/DL (8.5-10.1); CHLORIDE 106 MEQ/L (98-107); CREATININE 0.85 MG/DL (0.60-1.30); GLOMERULAR FILTRATION RATE 93 ML/MIN (>89); GLUCOSE,RANDOM 126 MG/DL (74-106); MAGNESIUM 2.1 MG/DL (1.5-2.5); SODIUM (NA) 142 MEQ/L (136-145)
[2017-08-09 18:04] LABS: ALKALINE PHOSPHATASE 63 U/L (45-117); ALT (GPT) 12 U/L (12-78); TOTAL PROTEIN 8.4 GM/DL (6.4-8.2); TROPONIN I LESS THAN 0.02 NG/ML (0.02-0.05)
[2017-08-09 19:30] LABS: BILIRUBIN, URINE NEG (NEG); BLOOD, URINE SMALL (NEG); GLUCOSE,URINE NEG (NEG); HYALINE CAST, URINE 3 /lpf (RARE); KETONE, URINE NEG (NEG); MUCUS URINE MOD /lpf (OCC); NITRITE,URINE NEG (NEG); URINE COLOR YELLOW (YELLW/STRAW); URINE LEUKOCYTE ESTERASE NEG (NEG)
--- NOTE | 2017-08-10 23:09 | EKG ---
Date Performed: 08/09/2017 Time Performed: 17:29:22 PTAGE: 57 years EKG: Sinus rhythm WITH OCCASIONAL VENTRICULAR PREMATURE COMPLEXES BORDERLINE ECG INTERPRETATION BASED ON A DEFAULT AGE OF 40 YEARS PREVIOUS TRACING : 06/21/2016 16.30 DOCTOR: Justo Chavez Interpretating Date/Time 08/10/2017 22:59:23
== END 2017-08-09 20:05 | disposition home or self-care (01) ==
LOC: NEPE 15:54
DX: E86.0 Dehydration (principal); R63.4 Abnormal weight loss; R53.1 Weakness; R42 Dizziness and giddiness; R63.0 Anorexia; R94.31 Abnormal electrocardiogram [ECG] [EKG]; M19.90 Unspecified osteoarthritis, unspecified site; F32.9 Major depressive disorder, single episode, unspecified; F43.10 Post-traumatic stress disorder, unspecified; Z86.73 Personal history of transient ischemic attack (TIA), and cerebral infarction without residual deficits; Z88.0 Allergy status to penicillin; Z79.899 Other long term (current) drug therapy
CPT/HCPCS: 70450; 71045; 80053; 81001; 82550; 83735; 84484; 85025; 93005